=== PATIENT | female | born 1935 | race Caucasian/White ===

== ENCOUNTER 2016-03-24 18:23 | Inpatient (IN) | payer MEDICARE ==
[~2016-03-24] VITALS: Ht 152.4 cm; Wt 63.5 kg
[~2016-03-24 18:23] MED LIST: ACET325T9 PO; CEFP200T PO; CEPH-264 PO; CHOL10002 PO; CIPR250T30 PO; DIGO125T PO; FLUC150T PO; FLUO10CA7; FLUO20CA8 PO; FOLI1TAB16 PO; FURO40TA4 PO; Ipratropium/Albuterol Sulfate NEB; LEVO500T38 PO; MAGN400T22 PO; METO50TA2 PO; METR500T PO; Oxycodone Hcl/Acetaminophen PO; PANT40TA3 PO; PANT40TA5; POTA20TA12 PO; POTASSIUM; SILV20CR4 TP; TRAM50TA PO; [UNRECOGNIZED DRUG - OTHER]
[2016-03-24] MEDS ORDERED: methylPREDNISolone SOD SUCC PF 125 MG/2 ML VIAL. IV ONE (19:15)
[2016-03-24] MEDS ORDERED: IPRATRPIUM/ALBUTEROL 0.5/2.5MG 3 ML NEBU. NEB ONE (19:15)
[2016-03-24 19:18] LABS: BASO # 0.1 x10^3/uL (0.0-0.2); BASO % 0 % (0-3); EOS % 0 % (0-3); HEMATOCRIT 40.8 % (36.0-47.0); HEMOGLOBIN 13.2 g/dL (12.0-15.5); LYMPH # 2.1 x10^3/uL (1.0-4.8); LYMPH % 10 % (24-48); MEAN CORPUSCULAR HEMOGLOBIN 29 pg (25-35); MEAN CORPUSCULAR HGB CONC 33 g/dL (31-37); MEAN CORPUSCULAR VOLUME 89 fL (79-100); MONO % 9 % (0-9); NEUT % 80 % (31-73); PLATELET COUNT 258 x10^3/uL (140-400); RED BLOOD COUNT 4.61 x10^6/uL (3.50-5.40); RED CELL DISTRIBUTION WIDTH 15.2 % (11.5-14.5); WHITE BLOOD COUNT 20.8 x10^3/uL (4.0-11.0)
[2016-03-24] MEDS ORDERED: CEFTRIAXONE 1GM IVPB FOR OMNI 50 ML IV ONE (20:00)
[2016-03-24 20:08] LABS: ALBUMIN 2.8 g/dL (3.4-5.0); ALBUMIN/GLOBULIN RATIO 0.6 (1.0-1.7); CALCIUM 9.8 mg/dL (8.5-10.1); GFR 53.2; POTASSIUM 3.6 mmol/L (3.5-5.1); TOTAL BILIRUBIN 0.8 mg/dL (0.2-1.0); TOTAL PROTEIN 7.7 g/dL (6.4-8.2)
[2016-03-24 20:11] LABS: PLT ESTIMATE ADEQUATE (ADEQUATE); TOXIC GRANULATION MOD
[2016-03-24 20:38] LABS: OBC FLU VALID
[2016-03-24] MEDS: AZITHROMYCIN 500 MG in IV NORMAL SALINE 250ML 250 ML IV SCH (20:51)
[2016-03-24 23:00] VITALS: BP 132/70
[2016-03-24] MEDS ORDERED: CEFTRIAXONE SODIUM 1 GM in IV NORMAL SALINE 100ML 100 ML IV ONE (23:00)
--- NOTE | 2016-03-25 01:33 | ACF ---
Admission Forms Criteria PNEUMONIA, COMMUNITY ACQUIRED Clinical Indications for Admission to Inpatient Care ( Place 'X' for any and all applicable criteria): Admission is indicated for ANY ONE of the following (1)(2)(3): [ ]I. Hypoxemia indicated by ANY ONE of the following: [ ]a) Oxygen saturation less than 90% while breathing room air [ ]b) PO2 less than 60 mm Hg (8.0 kPa) while breathing room air [ ]c) Chronic lung disease with significant deterioration from baseline oxygenation [ ]II. Appropriate diagnostic testing and treatment unavailable in outpatient or recovery facility (eg,testing or infection control measures unavailable(10) [ X]III. Moderate-risk or high-risk category patients (Pneumonia Severity Index (PSI) class IV or V, or CURB-65 score of 3 or greater). [ ]IV. Outpatient treatment failure as indicated by ANY ONE of the following(9) : [ ]a) Failure to respond to antibiotic (eg, resistant organism) [ ]b) Clinically significant adverse effects from medication (eg, vomiting) [ ]c) Complications of pneumonia (eg, empyema, bacteremia) [ ]d) Significant worsening of comorbid cond necessitating inpatient care (eg, chronic heart failure) [ ]V. Intermediate-risk category patients (eg, PSI class III or CURB-65 score 2) who do not improve with initial therapy and observation. [ ]. Immunocompromised patients (eg, AIDS, chronic steroid use) at moderate or high risk based on clinical evaluation. [ ]VII. Complicated pleural effusions (eg, exudative, loculated) [ ]VIII.Hemodynamic instability [ ] IX. Altered mental status that is severe or persistent. [ ]X. Dehydration that is severe or persistent. [ ]XI. Bacteremia [ ]XII. Respiratory finding (eg. tachypnea) that do not respond to outpatient or observation care treatment Extended stay beyond goal length of stay may be needed for (20) [ ]a) Unclear diagnosis [ ]b) Pleural disease [ ]c) Severe pneumonia or treatment failure (25 [ ]d) Respiratory failure (anticipate invasive or noninvasive ventilatory support) [ ]e) Abnormal serum electrolytes (serum Na concentration less than 135 mEq/L (mmol/L) (32)(33) [ ]f) Clinically significant comorbid illness (eg, heart failure, atrial fibrillation with rapid heart rate, alcohol withdrawal, renal insufficiency)(34)(35) [ ]g) Comorbid acute exacerbation of COPD(36) [ ]h) Concomitant diagnosis of malignancy that may be associated with malnutrition, immunologic impairment, or bronchial obstruction. [ ]i) Concomitant altered mental status [ ]j) Culture-identified Gram-negative or antibiotic-resistant organism (eg, Pseudomonas, methicillin-resistant Staphylococcus aureus)(30) [ ]k) Healthcare-associated pneumonia The original [facility] content created by [employer] has been revised. The portions of the content which have been revised are identified through the use of italic text or in bold, and [facility] has neither reviewed nor approved the modified material. All other unmodified content is copyright [facility] [employer]. Please see references footnoted in the original [facility] edition 2016 Admission Criteria Met?: Yes TIFFANIE CASTELLANOS Mar 25, 2016 01:33
--- NOTE | 2016-03-25 02:01 | ED.ADGEN ---
Past Medical History Past Medical History: A-Fib, COPD, Diabetes-Type II, Heart Disease, Hypertension, UTI, Other Additional Past Medical Histor: pt states has heart problems but no ND Past Surgical History: Other Additional Past Surgical Histo: back, Poor Historian Alcohol Use: Occasionally Drug Use: None Adult General Chief Complaint Chief Complaint: SHORTNESS OF BREATH HPI HPI Patient is a 80 year old woman, history of COPD who uses 2.5-3 L of oxygen at baseline, hypertension, hyperlipidemia, "heart problems", who presents to the emergency department with a complaint of difficulty breathing that began today, with a cough, productive of sputum that is thick and white, and shortness of breath. Patient states that she may be experiencing fevers at home, but is uncertain, denies chills, denies any weakness, numbness or tingling, any injuries, any sick contacts or exposures, any GI or complaints. Her flu vaccination is up-to-date. Review of Systems Review of Systems Constitutional: Denies fever or chills. [] Eyes: Denies change in visual acuity. [] HENT: Denies nasal congestion or sore throat. [] Respiratory: Cough productive of sputum, shortness of breath. Cardiovascular: Denies chest pain or edema. [] GI: Denies abdominal pain, nausea, vomiting, bloody stools or diarrhea. [] : Denies dysuria. [] Musculoskeletal: Denies back pain or joint pain. [] Integument: Denies rash. [] Neurologic: Denies headache, focal weakness or sensory changes. [] Endocrine: Denies polyuria or polydipsia. [] Lymphatic: Denies swollen glands. [] Psychiatric: Denies depression or anxiety. [] Current Medications Current Medications Current Medications Medications (Trade) Dose Ordered Sig/Darline Start Time Stop Time Status Last Admin Dose Admin Albuterol/ Ipratropium (Duoneb) 3 ml 1X ONCE 03/24/16 19:15 03/24/16 19:16 DC Methylprednisolone Sodium Succinate (Solu-Medrol 125mg Vial) 125 mg 1X ONCE 03/24/16 19:15 03/24/16 19:16 DC 03/24/16 19:42 125 MG Allergies Allergies Allergies Coded Allergies Type Severity Reaction Last Updated Verified celecoxib Allergy Intermediate 09/19/14 Yes duloxetine Allergy Intermediate 09/19/14 Yes rofecoxib Allergy Intermediate 09/19/14 Yes Physical Exam Physical Exam Constitutional: Well developed, well nourished, no acute distress, non-toxic appearance. Nasal cannula in place. [] HENT: Normocephalic, atraumatic, bilateral external ears normal, oropharynx moist, no oral exudates, nose normal. [] Eyes: PERRLA, EOMI, conjunctiva normal, no discharge. [] Neck: Normal range of motion, no tenderness, supple, no stridor. [] Cardiovascular:Heart rate regular rhythm, no murmur , S1, S2, rubs or gallops. [ ] Lungs & Thorax: Patient with coarse breath sounds at bases bilaterally, diminished, with mild crackles and rhonchi noted at the right lung base. No chest wall crepitus or tenderness. Abdomen: Bowel sounds normal, soft, no tenderness, no rebound, rigidity, no guarding, no masses, no pulsatile masses. [] Skin: Warm, dry, no erythema, no rash. [] Back: No tenderness, no CVA tenderness. [] Extremities: No tenderness, no cyanosis, no clubbing, ROM intact, no edema. Negative Homans sign. [] Neurologic: Alert and oriented X 3, normal motor function, normal sensory function, no focal deficits noted. [] Psychologic: Affect normal, judgement normal, mood normal. [] Current Patient Data Vital Signs Vital Signs Date Time Temp Pulse Resp B/P Pulse Ox O2 Delivery O2 Flow Rate FiO2 03/24/16 19:30 102 25 125/79 93 03/24/16 19:00 Nasal Cannula 3 03/24/16 18:25 98.3 98.3 Lab Values Laboratory Tests Test 03/24/16 18:35 03/24/16 19:50 White Blood Count 20.8x10^3/uL (4.0-11.0) H Red Blood Count 4.61x10^6/uL (3.50-5.40) Hemoglobin 13.2g/dL (12.0-15.5) Hematocrit 40.8% (36.0-47.0) Mean Corpuscular Volume 89fL (79-100) Mean Corpuscular Hemoglobin 29pg (25-35) Mean Corpuscular Hemoglobin Concent 33g/dL (31-37) Red Cell Distribution Width 15.2% (11.5-14.5) H Platelet Count 258x10^3/uL (140-400) Neutrophils (%) (Auto) 80% (31-73) H Lymphocytes (%) (Auto) 10% (24-48) L Monocytes (%) (Auto) 9% (0-9) Eosinophils (%) (Auto) 0% (0-3) Basophils (%) (Auto) 0% (0-3) Neutrophils # (Auto) 16.6x10^3uL (1.8-7.7) H Lymphocytes # (Auto) 2.1x10^3/uL (1.0-4.8) Monocytes # (Auto) 1.8x10^3/uL (0.0-1.1) H Eosinophils # (Auto) 0.1x10^3/uL (0.0-0.7) Basophils # (Auto) 0.1x10^3/uL (0.0-0.2) Segmented Neutrophils % 72% (35-66) H Band Neutrophils % 13% (0-9) H Lymphocytes % 6% (24-48) L Monocytes % 9% (0-10) Toxic Granulation Mod Platelet Estimate Adequate (ADEQUATE) Sodium Level 140mmol/L (136-145) Potassium Level 3.6mmol/L (3.5-5.1) Chloride Level 98mmol/L (98-107) Carbon Dioxide Level 27mmol/L (21-32) Anion Gap 15 (6-14) H Blood Urea Nitrogen 22mg/dL (7-20) H Creatinine 1.0mg/dL (0.6-1.0) Estimated GFR (Cockcroft-Gault) 53.2 BUN/Creatinine Ratio 22 (6-20) H Glucose Level 134mg/dL (70-99) H Calcium Level 9.8mg/dL (8.5-10.1) Total Bilirubin 0.8mg/dL (0.2-1.0) Aspartate Amino Transferase (AST) 23U/L (15-37) Alanine Aminotransferase (ALT) 11U/L (14-59) L Alkaline Phosphatase 107U/L (46-116) Troponin I Quantitative < 0.017ng/mL (0.000-0.055) HE-Gjs-M-Type Natriuretic Peptide 2048pg/mL (0-449) H Total Protein 7.7g/dL (6.4-8.2) Albumin 2.8g/dL (3.4-5.0) L Albumin/Globulin Ratio 0.6 (1.0-1.7) L Influenza Type A Antigen Negative (NEGATIVE) Influenza Type B Antigen Negative (NEGATIVE) Laboratory Tests 03/24/16 18:35 Laboratory Tests 03/24/16 18:35 EKG EKG EC to: Regular rhythm, heart rate 96 beats minute, QTC of 451, QRS of 88, occasional PVCs noted, with T-wave inversions noted in the lateral leads, left axis deviation, and right ventricle hypertrophy, abnormal ECG, does not meet STEMI criteria. [] Radiology/Procedures Radiology/Procedures Chest x-ray: One view: Patient with hyperinflation, right lower lobe infiltrate identified, normal cardiac silhouette, no effusions, no pneumothorax. No bony abnormalities. As interpreted by me. Course & Med Decision Making Course & Med Decision Making Pertinent Labs and Imaging studies reviewed. (See chart for details) Patient's examination, history, and imaging are consistent with a community- acquired pneumonia. Patient stable on 3 L nasal cannula in the ED, initiated IV antibiotics, steroids, nebs in the ED. Findings as above discussed with Dr. Sheriff, patient accepted to his service as a full admission to the medical telemetry floor, with continued IV antibiotics, supportive measures as stated bridge orders per his request. Dragon Disclaimer Dragon Disclaimer This electronic medical record was generated, in whole or in part, using a voice recognition dictation system. Departure Impression: Primary Impression: Community acquired pneumonia Additional Impression: COPD (chronic obstructive pulmonary disease) Disposition: 09 ADMITTED INPATIENT Admitting Physician: Myranda Sheriff Condition: IMPROVED Problem Qualifiers Additional Impression: COPD (chronic obstructive pulmonary disease) COPD type: chronic bronchitis Chronic bronchitis type: unspecified Qualified Code: J42 - Unspecified chronic bronchitis PERNELL GUILLEN DO Mar 25, 2016 02:02
[2016-03-25] MEDS ORDERED: DEXTROSE 50% 25 GM / 50ML DISP.SYRIN. IV PRN (02:15)
[2016-03-25 03:00] VITALS: BP 121/85
--- NOTE | 2016-03-25 06:21 | EKG ---
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
[2016-03-25 07:00] VITALS: BP 145/93
--- NOTE | 2016-03-25 08:16 | RAD ---
Portable AP upright view CXR: Clinical indications: Shortness of breath and cough today. Comparison: November 29, 2015. Findings: Right lung base infiltrate is seen. There is focal eventration of the medial left hemidiaphragm which is unchanged. No pleural effusion or pneumothorax is seen. Heart size is enlarged but stable. Mediastinum is stable. Narrowing of the acromiohumeral space of the left shoulder is seen consistent with a chronic rotator cuff tear. IMPRESSION: Right lung base infiltrate.
[2016-03-25] MEDS: INSULIN ASPART 300 UNITS/3 ML INSULN.PEN SQ SCH ×3 (08:43→16:30)
[2016-03-25] MEDS ORDERED: TRAMADOL 50 MG TABLET. PO PRN (09:00)
[2016-03-25] MEDS ORDERED: ACETAMINOPHEN 325 MG TABLET. PO PRN (09:00)
--- NOTE | 2016-03-25 10:28 | PDOC ---
Provider Note Provider Note Patient seen. History and Physical dictated. See dictation# [id number] SUSAN JACKSON MD Mar 25, 2016 10:27
[2016-03-25] MEDS ORDERED: POTASSIUM CHLORIDE 20 MEQ TABLET.ER. PO ONE (10:30)
[2016-03-25 11:14] VITALS: BP 129/66
[2016-03-25] MEDS: IPRATRPIUM/ALBUTEROL 0.5/2.5MG 3 ML NEBU. NEB SCH ×2 (11:33→16:36)
--- NOTE | 2016-03-25 11:48 | PDOC ---
Provider Note Provider Note dictated KODAK ARIAS MD Mar 25, 2016 11:48
--- NOTE | 2016-03-25 12:03 | CONS ---
DATE OF CONSULTATION: 03/25/2016 ATTENDING PHYSICIAN: Dr. Myranda Sheriff REASON FOR CONSULTATION: Pneumonia and dyspnea. HISTORY OF PRESENT ILLNESS: The patient is an 80-year-old female who has 60 years of tobacco use. She uses 2.5-3 liters of oxygen on a 24-hour basis. She was brought into the hospital complaining of cough and shortness of breath. She states the family members were ill at home as well. She has some wheezing on admission. No leg edema. No chest pain, no nausea, vomiting or diarrhea. The patient's chest x-ray was reviewed by me and it shows right lower lobe infiltrate consistent with pneumonia. Her oxygen requirement has not changed. PAST MEDICAL HISTORY: History of AFib, history of COPD, type 2 diabetes, heart disease, hypertension, UTI, and chronic respiratory failure. PAST SURGICAL HISTORY: Back surgery. ALLERGIES: , DULOXETINE AND . MEDICATIONS: Reviewed as listed in the MRAD including antibiotic, Rocephin and azithromycin. She is currently on bronchodilators as well. REVIEW OF SYSTEMS: Twelve-point system obtained. Pertinent positives discussed in my history of present illness, otherwise noncontributory. All systems that were negative were reviewed as well. SOCIAL HISTORY: Smoked for 60 years. FAMILY HISTORY: Noncontributory lungs. PHYSICAL EXAMINATION: VITAL SIGNS: Blood pressure stable, afebrile, pulse ox 94% on 4 liters. HEENT: Sclerae nonicteric. NECK: Supple. LUNGS: With crackles, right lower lobe. CARDIOVASCULAR: Regular rate. ABDOMEN: Soft, nontender. EXTREMITIES: With no pitting edema. LABORATORY DATA: Reviewed. White cell count 20.8, hemoglobin 13.2. Influenza is negative. BUN 22, creatinine 1.0. IMPRESSION: 1. Dyspnea secondary to acute exacerbation of chronic obstructive pulmonary disease and right lower lobe pneumonia. 2. Abnormal chest x-ray with right lower lobe infiltrate and crackles on examination. This is consistent with community-acquired pneumonia. 3. Clinically, unlikely congestive heart failure. 4. Leukocytosis secondary to pneumonia. 5. Underlying severe chronic obstructive pulmonary disease with chronic respiratory failure on 2-1/2 to 3 liters of oxygen. RECOMMENDATION: 1. Continue present antibiotics. 2. Continue present bronchodilators. 3. Repeat chest x-ray in 48-72 hours. 4. Continue oxygen to keep saturation 92-94%. 5. We will follow along with you. KODAK ARIAS MD DR: KSENIA/allyn JOB#: [id number] / [id number]
[2016-03-25] MEDS: CHOLECALCIFEROL (VITAMIN D3) 1,000 UNIT TABLET PO SCH (12:32)
[2016-03-25] MEDS: DIGOXIN 125 MCG TABLET PO SCH (12:32)
[2016-03-25] MEDS: FLUOXETINE HCL 20 MG CAPSULE PO SCH (12:32)
[2016-03-25] MEDS: MAGNESIUM OXIDE 400 MG TABLET PO SCH ×4 (12:32→21:10)
[2016-03-25] MEDS: PANTOPRAZOLE 40 MG TABLET. PO SCH (12:32)
[2016-03-25] MEDS: FOLIC ACID 1 MG TABLET PO SCH (12:33)
[2016-03-25] MEDS: METOPROLOL TART IMMED RELEASE 50 MG TABLET PO SCH ×2 (12:33→21:10)
[2016-03-25 15:15] VITALS: BP 146/80
[2016-03-25] MEDS ORDERED: POTA10CA PO (16:28)
[2016-03-25] MEDS ORDERED: FURO40TA4 PO (16:28)
[2016-03-25 19:00] VITALS: BP 132/69
[2016-03-25] MEDS: AZITHROMYCIN 500 MG in IV NORMAL SALINE 250ML 250 ML IV SCH (21:10)
[2016-03-25] MEDS: CEFTRIAXONE SODIUM 1 GM in IV NORMAL SALINE 100ML 100 ML IV SCH (22:30)
[2016-03-25 23:00] VITALS: BP 143/90
[2016-03-26] MEDS: GUAIFENESIN DM 200MG/20MG 10 ML SYRUP. PO PRN ×3 (01:54→20:53)
--- NOTE | 2016-03-26 02:26 | HP ---
ADMIT DATE: 03/24/2016 ADMITTING PHYSICIAN: Dr. Susan Jackson. REASON FOR ADMISSION: Dyspnea and cough. HISTORY OF PRESENT ILLNESS: This 80-year-old female who lives at home, recently her with her who had cold, cough, congestion and was admitted to the hospital. This happened a few days ago. The patient now states that last 2-3 days, she has had increased cough, congestion and dyspnea. She denies any fever or chills. She is a poor historian. She stated that she has been weak and sick for several months. She does not come to the office frequently and has not been getting out of bed. She also has a history of alcoholism, although I am not sure if she has been drinking currently. She is not a good historian and admits to cough and congestion. She denies any nausea or vomiting. Her appetite has been poor and she has been feeling weak. SYSTEMS REVIEW: Other systems reviewed and are negative. She denies any chest pains or palpitations or abdominal pain, nausea or vomiting. In the Emergency Room, the patient was noted to have right lower lobe infiltrate and the patient has been admitted for pneumonia and exacerbation of COPD. PAST MEDICAL HISTORY: The patient was last admitted here in 11/2015 for urinary tract infection and weakness. She is known to have history of atrial fibrillation, chronic, not an anticoagulation candidate, history of alcoholism, hypomagnesemia, systolic congestive heart failure with ejection fraction of 40%, hypertension, hyperlipidemia, chronic obstructive pulmonary disease with exacerbation, chronic respiratory failure with chronic oxygen use at 2 liters by nasal cannula, gastroesophageal reflux disease, low back pain, chronic degenerative disk disease, lumbar spinal stenosis and mild scoliosis, gout, chronic renal insufficiency, diabetes mellitus, peripheral vascular disease, physical deconditioning, noncompliance. She also has history of bladder diverticulum. PAST SURGICAL HISTORY: The patient has had back surgery, appendectomy and history of falls. FAMILY HISTORY: Positive for hypertension. SOCIAL HISTORY: The patient has a history of alcoholism, chronic smoking and also history of dependence on narcotic medications. MEDICATIONS: Reviewed. ALLERGIES: The patient is ALLERGIC TO CELEBREX, DULOXETINE AND VIOXX. PHYSICAL EXAMINATION: GENERAL: The patient is an elderly female who is chronically ill and also appears to be now acutely ill and in mild respiratory distress. VITAL SIGNS: Temperature 97.2, pulse 84 per minute, respirations 18 per minute, blood pressure 145/93 mmHg. GENERAL: The patient is alert, oriented, but forgetful and in mild to moderate respiratory distress. EYES: Pupils reacting to light. Conjunctivae pale. Sclerae muddy. THROAT: Congested. SKIN: Warm and dry. Skin is pale. NECK: JVP normal. No thyromegaly. Trachea midline. LUNGS: Decreased breath sounds at bases with occasional rhonchi and wheezes. The patient has decreased breath sounds in both lungs. CARDIOVASCULAR: S1, S2 irregular. ABDOMEN: Soft, nontender. No guarding, no rigidity. Bowel sounds present. EXTREMITIES: No edema. CENTRAL NERVOUS SYSTEM: Generalized weakness. LABORATORY FINDINGS: Chest x-ray shows a right lower lobe infiltrate. Sodium is 140, potassium 3.6, BUN 22, creatinine 1.0. Glucose 134 and 183. BNP is 2048. Troponin less than 0.017. Albumin 2.8, total protein 7.7. Influenza A and B serologies negative. WBC count is 20.8, hemoglobin 13.2, platelet count is 258,000. Polys 72, bands 13. IMPRESSION: 1. Pneumonia. 2. Exacerbation of chronic obstructive pulmonary disease. 3. Atrial fibrillation, chronic, not an anticoagulation candidate. 4. Chronic systolic congestive heart failure with ejection fraction of 40%. 5. Hypertension. 6. Hyperlipidemia. 7. Chronic respiratory failure, hypoxic with oxygen use at 2 liters by nasal cannula. 8. Gastroesophageal reflux disease. 9. Low back pain. 10. Chronic degenerative disk disease and lumbar spinal stenosis and mild scoliosis. 11. Gout. 12. Chronic renal insufficiency. 13. Diabetes mellitus. 14. Peripheral vascular disease. 15. Physical deconditioning. PLAN: I will start her on IV Rocephin, IV Zithromax and we are going to treat her for community-acquired pneumonia. Consult Dr. Styles for pulmonary evaluation and management. I will start her on breathing treatment. Monitor her for seizures and withdrawal because the patient has history of alcoholism. I discussed the condition and treatment with her . Monitor blood sugars, low-dose insulin sliding scale. Replace potassium. For details, please refer to the orders. I will also obtain urinalysis and culture if needed. SUSAN JACKSON MD DR: BETSY/nts JOB#: [id number] / [id number]
[2016-03-26 03:00] VITALS: BP 91/73
[2016-03-26] MEDS: MAGNESIUM OXIDE 400 MG TABLET PO SCH ×4 (05:48→20:52)
[2016-03-26 06:32] LABS: ALBUMIN 2.7 g/dL (3.4-5.0); ALBUMIN/GLOBULIN RATIO 0.6 (1.0-1.7); CALCIUM 9.6 mg/dL (8.5-10.1); CREATININE 1.2 mg/dL (0.6-1.0); GFR 43.1; MAGNESIUM 1.6 mg/dL (1.8-2.4); POTASSIUM 3.1 mmol/L (3.5-5.1); TOTAL BILIRUBIN 0.4 mg/dL (0.2-1.0); TOTAL PROTEIN 6.9 g/dL (6.4-8.2)
[2016-03-26] MEDS: IPRATRPIUM/ALBUTEROL 0.5/2.5MG 3 ML NEBU. NEB SCH ×4 (06:59→19:27)
[2016-03-26 07:00] VITALS: BP 142/67
[2016-03-26] MEDS: INSULIN ASPART 300 UNITS/3 ML INSULN.PEN SQ SCH ×2 (07:30→16:30)
--- NOTE | 2016-03-26 08:27 | PDOC ---
PULMONARY PROGRESS NOTES Subjective has sob, cough, not able to cough sputum, has nasal congestion Vitals Vital Signs Date Time Temp Pulse Resp B/P Pulse Ox O2 Delivery O2 Flow Rate FiO2 03/26/16 07:00 93 Room Air 03/26/16 03:00 97.9 94 20 91/73 4.0 97.9 Comments ros as mentioned as above other sys otherwise neg General: Alert Lungs: Wheezing, Crackles Cardiovascular: S1, S2 Abdomen: Soft, Non-tender Neuro Exam: Alert, Oriented Extremities: No Edema Skin: Warm Labs Laboratory Tests Test 03/24/16 18:35 03/24/16 19:50 03/25/16 08:38 03/25/16 11:35 White Blood Count 20.8x10^3/uL (4.0-11.0) Red Blood Count 4.61x10^6/uL (3.50-5.40) Hemoglobin 13.2g/dL (12.0-15.5) Hematocrit 40.8% (36.0-47.0) Mean Corpuscular Volume 89fL (79-100) Mean Corpuscular Hemoglobin 29pg (25-35) Mean Corpuscular Hemoglobin Concent 33g/dL (31-37) Red Cell Distribution Width 15.2% (11.5-14.5) Platelet Count 258x10^3/uL (140-400) Neutrophils (%) (Auto) 80% (31-73) Lymphocytes (%) (Auto) 10% (24-48) Monocytes (%) (Auto) 9% (0-9) Eosinophils (%) (Auto) 0% (0-3) Basophils (%) (Auto) 0% (0-3) Neutrophils # (Auto) 16.6x10^3uL (1.8-7.7) Lymphocytes # (Auto) 2.1x10^3/uL (1.0-4.8) Monocytes # (Auto) 1.8x10^3/uL (0.0-1.1) Eosinophils # (Auto) 0.1x10^3/uL (0.0-0.7) Basophils # (Auto) 0.1x10^3/uL (0.0-0.2) Segmented Neutrophils % 72% (35-66) Band Neutrophils % 13% (0-9) Lymphocytes % 6% (24-48) Monocytes % 9% (0-10) Toxic Granulation Mod Platelet Estimate Adequate (ADEQUATE) Sodium Level 140mmol/L (136-145) Potassium Level 3.6mmol/L (3.5-5.1) Chloride Level 98mmol/L (98-107) Carbon Dioxide Level 27mmol/L (21-32) Anion Gap 15 (6-14) Blood Urea Nitrogen 22mg/dL (7-20) Creatinine 1.0mg/dL (0.6-1.0) Estimated GFR (Cockcroft-Gault) 53.2 BUN/Creatinine Ratio 22 (6-20) Glucose Level 134mg/dL (70-99) Calcium Level 9.8mg/dL (8.5-10.1) Total Bilirubin 0.8mg/dL (0.2-1.0) Aspartate Amino Transf (AST/SGOT) 23U/L (15-37) Alanine Aminotransferase (ALT/SGPT) 11U/L (14-59) Alkaline Phosphatase 107U/L (46-116) Troponin I Quantitative < 0.017ng/mL (0.000-0.055) XI-[id number]-I-Type Natriuretic Peptide 2048pg/mL (0-449) Total Protein 7.7g/dL (6.4-8.2) Albumin 2.8g/dL (3.4-5.0) Albumin/Globulin Ratio 0.6 (1.0-1.7) Influenza Type A Antigen Negative (NEGATIVE) Influenza Type B Antigen Negative (NEGATIVE) Glucose (Fingerstick) 183mg/dL (70-99) 144mg/dL (70-99) Test 03/25/16 16:44 03/25/16 21:00 03/26/16 05:00 03/26/16 07:52 Glucose (Fingerstick) 136mg/dL (70-99) 165mg/dL (70-99) 104mg/dL (70-99) Sodium Level 142mmol/L (136-145) Potassium Level 3.1mmol/L (3.5-5.1) Chloride Level 100mmol/L (98-107) Carbon Dioxide Level 32mmol/L (21-32) Anion Gap 10 (6-14) Blood Urea Nitrogen 40mg/dL (7-20) Creatinine 1.2mg/dL (0.6-1.0) Estimated GFR (Cockcroft-Gault) 43.1 BUN/Creatinine Ratio 33 (6-20) Glucose Level 95mg/dL (70-99) Calcium Level 9.6mg/dL (8.5-10.1) Magnesium Level 1.6mg/dL (1.8-2.4) Total Bilirubin 0.4mg/dL (0.2-1.0) Aspartate Amino Transf (AST/SGOT) 16U/L (15-37) Alanine Aminotransferase (ALT/SGPT) 11U/L (14-59) Alkaline Phosphatase 82U/L (46-116) Total Protein 6.9g/dL (6.4-8.2) Albumin 2.7g/dL (3.4-5.0) Albumin/Globulin Ratio 0.6 (1.0-1.7) Laboratory Tests Test 03/25/16 08:38 03/25/16 11:35 03/25/16 16:44 03/25/16 21:00 Glucose (Fingerstick) 183mg/dL (70-99) 144mg/dL (70-99) 136mg/dL (70-99) 165mg/dL (70-99) Test 03/26/16 05:00 03/26/16 07:52 Sodium Level 142mmol/L (136-145) Potassium Level 3.1mmol/L (3.5-5.1) Chloride Level 100mmol/L (98-107) Carbon Dioxide Level 32mmol/L (21-32) Anion Gap 10 (6-14) Blood Urea Nitrogen 40mg/dL (7-20) Creatinine 1.2mg/dL (0.6-1.0) Estimated GFR (Cockcroft-Gault) 43.1 BUN/Creatinine Ratio 33 (6-20) Glucose Level 95mg/dL (70-99) Calcium Level 9.6mg/dL (8.5-10.1) Magnesium Level 1.6mg/dL (1.8-2.4) Total Bilirubin 0.4mg/dL (0.2-1.0) Aspartate Amino Transf (AST/SGOT) 16U/L (15-37) Alanine Aminotransferase (ALT/SGPT) 11U/L (14-59) Alkaline Phosphatase 82U/L (46-116) Total Protein 6.9g/dL (6.4-8.2) Albumin 2.7g/dL (3.4-5.0) Albumin/Globulin Ratio 0.6 (1.0-1.7) Glucose (Fingerstick) 104mg/dL (70-99) Medications Active Scripts Medications Dose Route/Sig Days Date Category Potassium Chloride 10 Meq Capsule.er 10 Meq PO DAILY 03/25/16 Reported Furosemide 40 Mg Tablet 1 Tab PO DAILY 03/25/16 Reported Cefpodoxime Proxetil 200 Mg Tablet 1 Tab PO BID 12/02/15 Rx Vitamin D (Cholecalciferol (Vitamin D3)) 1,000 Unit Tablet 1,000 Unit PO DAILY 09/28/15 Rx Fluoxetine Hcl 20 Mg Capsule 20 Mg PO DAILY 09/28/15 Rx Protonix (Pantoprazole Sodium) 40 Mg Tablet 40 Mg PO DAILYAC 12/09/14 Rx [Ipratropium/Albuterol Sulfate] 3 ML Nebu 3 Ml NEB RTQID 12/09/14 Rx Tylenol (Acetaminophen) 325 Mg Tablet 650 Mg PO PRN Q6HRS PRN 12/09/14 Rx Tramadol Hcl 50 Mg Tablet 1 Tab PO PRN Q6HRS 09/19/14 Reported Metoprolol Tartrate 50 Mg Tablet 1 Tab PO BID 09/19/14 Reported Mag-Oxide (Magnesium Oxide) 400 Mg Tablet 400 Mg PO [id number] 09/19/14 Reported Folic Acid 1 Mg Tablet 1 Tab PO DAILY 09/19/14 Reported Digoxin 125 Mcg Tablet 125 Mcg PO DAILY 09/19/14 Reported Comments cxr reviewed, rll infilt Impression . IMPRESSION: 1. Dyspnea secondary to acute exacerbation of chronic obstructive pulmonary disease and right lower lobe pneumonia. 2. Abnormal chest x-ray with right lower lobe infiltrate and crackles on examination. This is consistent with community-acquired pneumonia. 3. Clinically, unlikely congestive heart failure. 4. Leukocytosis secondary to pneumonia. 5. Underlying severe chronic obstructive pulmonary disease with chronic respiratory failure on 2-1/2 to 3 liters of oxygen. 6. wheezing. Plan . RECOMMENDATION: 1. Continue present antibiotics. 2. Continue bronchodilators. 3. Repeat chest x-ray in 48-72 hours. 4. Continue oxygen to keep saturation 92-94%. 5. add singulair 6. add ics discussed w rn, pt JULITO ARAUJO MD Mar 26, 2016 08:27
[2016-03-26] MEDS: METOPROLOL TART IMMED RELEASE 50 MG TABLET PO SCH ×2 (08:39→20:53)
[2016-03-26] MEDS: FLUOXETINE HCL 20 MG CAPSULE PO SCH (08:39)
[2016-03-26] MEDS: CHOLECALCIFEROL (VITAMIN D3) 1,000 UNIT TABLET PO SCH (08:39)
[2016-03-26] MEDS: PANTOPRAZOLE 40 MG TABLET. PO SCH (08:39)
[2016-03-26] MEDS: FOLIC ACID 1 MG TABLET PO SCH (08:39)
[2016-03-26] MEDS: DIGOXIN 125 MCG TABLET PO SCH (08:41)
[2016-03-26] MEDS: BUDESONIDE 0.5 MG/2 ML NEBU NEB SCH ×2 (09:00→19:27)
[2016-03-26] MEDS ORDERED: MAGNESIUM SULFATE 4GM 100 ML IV ONE (10:00)
[2016-03-26 10:13] LABS: BACTERIA,URINE 0 /HPF (0-FEW); BILIRUBIN,URINE NEGATIVE (NEG); GLUCOSE,URINE NEGATIVE (NEG); NITRITE,URINE NEGATIVE (NEG); PH,URINE 6.5; PROTEIN,URINE NEGATIVE (NEG-TRACE); RBC,URINE 0 /HPF (0-2); SQUAMOUS EPITHELIAL CELL,UR FEW /LPF; WBC,URINE 0 /HPF (0-4)
[2016-03-26] MEDS: POTASSIUM CHLORIDE 20 MEQ TABLET.ER. PO SCH ×2 (10:17→16:50)
[2016-03-26 11:00] VITALS: BP 140/92
--- NOTE | 2016-03-26 12:57 | PDOC ---
IM PROGRESS NOTES- Subjective Subjective Has cough,congestion Objective Vitals Vital Signs Date Time Temp Pulse Resp B/P Pulse Ox O2 Delivery O2 Flow Rate FiO2 03/26/16 12:40 Nasal Cannula 2.0 03/26/16 11:00 98.2 84 20 140/92 95 98.2 Input & Output Intake and Output 03/26/16 07:00 Intake Total 4160 ml Balance 4160 ml Intake Oral 3810 ml IV Total 350 ml # Voids 9 Physical Exam Physical Exam General appearance - alert,ill appearing, and in no distress and oriented to person, place, and time Mental Status - alert, oriented to person, place, and time, affect appropriate to mood Head - normal Chest - few bilateral wheezes Heart - S1 and S2 normal Abdomen - soft, nontender, nondistended, no masses or organomegaly Neurological - alert and oriented Musculoskeletal - no muscular tenderness noted Extremities - no pedal edema Skin - warm and dry Labs Laboratory Tests Test 03/24/16 18:35 03/24/16 19:50 03/25/16 08:38 03/25/16 11:35 White Blood Count 20.8x10^3/uL (4.0-11.0) Red Blood Count 4.61x10^6/uL (3.50-5.40) Hemoglobin 13.2g/dL (12.0-15.5) Hematocrit 40.8% (36.0-47.0) Mean Corpuscular Volume 89fL (79-100) Mean Corpuscular Hemoglobin 29pg (25-35) Mean Corpuscular Hemoglobin Concent 33g/dL (31-37) Red Cell Distribution Width 15.2% (11.5-14.5) Platelet Count 258x10^3/uL (140-400) Neutrophils (%) (Auto) 80% (31-73) Lymphocytes (%) (Auto) 10% (24-48) Monocytes (%) (Auto) 9% (0-9) Eosinophils (%) (Auto) 0% (0-3) Basophils (%) (Auto) 0% (0-3) Neutrophils # (Auto) 16.6x10^3uL (1.8-7.7) Lymphocytes # (Auto) 2.1x10^3/uL (1.0-4.8) Monocytes # (Auto) 1.8x10^3/uL (0.0-1.1) Eosinophils # (Auto) 0.1x10^3/uL (0.0-0.7) Basophils # (Auto) 0.1x10^3/uL (0.0-0.2) Segmented Neutrophils % 72% (35-66) Band Neutrophils % 13% (0-9) Lymphocytes % 6% (24-48) Monocytes % 9% (0-10) Toxic Granulation Mod Platelet Estimate Adequate (ADEQUATE) Sodium Level 140mmol/L (136-145) Potassium Level 3.6mmol/L (3.5-5.1) Chloride Level 98mmol/L (98-107) Carbon Dioxide Level 27mmol/L (21-32) Anion Gap 15 (6-14) Blood Urea Nitrogen 22mg/dL (7-20) Creatinine 1.0mg/dL (0.6-1.0) Estimated GFR (Cockcroft-Gault) 53.2 BUN/Creatinine Ratio 22 (6-20) Glucose Level 134mg/dL (70-99) Calcium Level 9.8mg/dL (8.5-10.1) Total Bilirubin 0.8mg/dL (0.2-1.0) Aspartate Amino Transf (AST/SGOT) 23U/L (15-37) Alanine Aminotransferase (ALT/SGPT) 11U/L (14-59) Alkaline Phosphatase 107U/L (46-116) Troponin I Quantitative < 0.017ng/mL (0.000-0.055) [id number]-Type Natriuretic Peptide 2048pg/mL (0-449) Total Protein 7.7g/dL (6.4-8.2) Albumin 2.8g/dL (3.4-5.0) Albumin/Globulin Ratio 0.6 (1.0-1.7) Influenza Type A Antigen Negative (NEGATIVE) Influenza Type B Antigen Negative (NEGATIVE) Glucose (Fingerstick) 183mg/dL (70-99) 144mg/dL (70-99) Test 03/25/16 16:44 03/25/16 21:00 03/26/16 05:00 03/26/16 07:52 Glucose (Fingerstick) 136mg/dL (70-99) 165mg/dL (70-99) 104mg/dL (70-99) Sodium Level 142mmol/L (136-145) Potassium Level 3.1mmol/L (3.5-5.1) Chloride Level 100mmol/L (98-107) Carbon Dioxide Level 32mmol/L (21-32) Anion Gap 10 (6-14) Blood Urea Nitrogen 40mg/dL (7-20) Creatinine 1.2mg/dL (0.6-1.0) Estimated GFR (Cockcroft-Gault) 43.1 BUN/Creatinine Ratio 33 (6-20) Glucose Level 95mg/dL (70-99) Calcium Level 9.6mg/dL (8.5-10.1) Magnesium Level 1.6mg/dL (1.8-2.4) Total Bilirubin 0.4mg/dL (0.2-1.0) Aspartate Amino Transf (AST/SGOT) 16U/L (15-37) Alanine Aminotransferase (ALT/SGPT) 11U/L (14-59) Alkaline Phosphatase 82U/L (46-116) Total Protein 6.9g/dL (6.4-8.2) Albumin 2.7g/dL (3.4-5.0) Albumin/Globulin Ratio 0.6 (1.0-1.7) Test 03/26/16 08:30 03/26/16 11:38 Urine Collection Type Unknown Urine Color Yellow Urine Clarity Clear Urine pH 6.5 Urine Specific [place] 1.020 Urine Protein Negativemg/dL (NEG-TRACE) Urine Glucose (UA) Negativemg/dL (NEG) Urine Ketones (Stick) Negativemg/dL (NEG) Urine Blood Negative (NEG) Urine Nitrite Negative (NEG) Urine Bilirubin Negative (NEG) Urine Urobilinogen Dipstick 1.0mg/dL (0.2 mg/dL) Urine Leukocyte Esterase Negative (NEG) Urine RBC 0/HPF (0-2) Urine WBC 0/HPF (0-4) Urine Squamous Epithelial Cells Few/LPF Urine Bacteria 0/HPF (0-FEW) Glucose (Fingerstick) 143mg/dL (70-99) Laboratory Tests Test 03/25/16 16:44 03/25/16 21:00 03/26/16 05:00 03/26/16 07:52 Glucose (Fingerstick) 136mg/dL (70-99) 165mg/dL (70-99) 104mg/dL (70-99) Sodium Level 142mmol/L (136-145) Potassium Level 3.1mmol/L (3.5-5.1) Chloride Level 100mmol/L (98-107) Carbon Dioxide Level 32mmol/L (21-32) Anion Gap 10 (6-14) Blood Urea Nitrogen 40mg/dL (7-20) Creatinine 1.2mg/dL (0.6-1.0) Estimated GFR (Cockcroft-Gault) 43.1 BUN/Creatinine Ratio 33 (6-20) Glucose Level 95mg/dL (70-99) Calcium Level 9.6mg/dL (8.5-10.1) Magnesium Level 1.6mg/dL (1.8-2.4) Total Bilirubin 0.4mg/dL (0.2-1.0) Aspartate Amino Transf (AST/SGOT) 16U/L (15-37) Alanine Aminotransferase (ALT/SGPT) 11U/L (14-59) Alkaline Phosphatase 82U/L (46-116) Total Protein 6.9g/dL (6.4-8.2) Albumin 2.7g/dL (3.4-5.0) Albumin/Globulin Ratio 0.6 (1.0-1.7) Test 03/26/16 08:30 03/26/16 11:38 Urine Collection Type Unknown Urine Color Yellow Urine Clarity Clear Urine pH 6.5 Urine Specific [place] 1.020 Urine Protein Negativemg/dL (NEG-TRACE) Urine Glucose (UA) Negativemg/dL (NEG) Urine Ketones (Stick) Negativemg/dL (NEG) Urine Blood Negative (NEG) Urine Nitrite Negative (NEG) Urine Bilirubin Negative (NEG) Urine Urobilinogen Dipstick 1.0mg/dL (0.2 mg/dL) Urine Leukocyte Esterase Negative (NEG) Urine RBC 0/HPF (0-2) Urine WBC 0/HPF (0-4) Urine Squamous Epithelial Cells Few/LPF Urine Bacteria 0/HPF (0-FEW) Glucose (Fingerstick) 143mg/dL (70-99) Meds Current Medications Budesonide (Pulmicort) 0.5 mg RTBID NEB ; Start 03/26/16 at 09:00 Ceftriaxone Sodium/Sodium Chloride (Rocephin/Iv Sodium Chloride 0.9% 100ml) 100 ml @ 200 mls/hr Q24H IV Last administered on 03/25/16 22:30; Start 03/25/16 at 21:00 Guaifenesin (Robitussin Dm) 10 ml PRN Q6HRS PRN PO COUGH Last administered on 08:39; Start 03/25/16 at 23:30 Insulin Aspart (Novolog) BIDBFRMEAL SQ ; Start 03/25/16 at 16:30 Magnesium Sulfate/ Dextrose (Magnesium Sulfate PREMIX 4GM) 100 ml @ 25 mls/hr 1X ONCE IV Last administered on 03/26/16 10:18; Start 03/26/16 at 10:00; Stop 03/26/16 at 13:59 Montelukast Sodium (Singulair) 10 mg QHS PO ; Start 03/26/16 at 21:00 Potassium Chloride 20 meq 20 meq BIDAFTMEAL PO Last administered on 03/26/16 10:17; Start 03/26/16 at 09:30 Assessment Assessment 1. Pneumonia. 2. Exacerbation of chronic obstructive pulmonary disease. 3. Atrial fibrillation, chronic, not an anticoagulation candidate. 4. Chronic systolic congestive heart failure with ejection fraction of 40%. 5. Hypertension. 6. Hyperlipidemia. 7. Chronic respiratory failure, hypoxic with oxygen use at 2 liters by nasal cannula. 8. Gastroesophageal reflux disease. 9. Low back pain. 10. Chronic degenerative disk disease and lumbar spinal stenosis and mild scoliosis. 11. Gout. 12. Chronic renal insufficiency. 13. Diabetes mellitus. 14. Peripheral vascular disease. 15. Physical deconditioning. PLAN: I will start her on IV Rocephin, IV Zithromax and we are going to treat her for community-acquired pneumonia. Consult Dr. Styles for pulmonary evaluation and management. I will start her on breathing treatment. Monitor her for seizures and withdrawal because the patient has history of alcoholism. I discussed the condition and treatment with her . Monitor blood sugars, low-dose insulin sliding scale. Replace potassium. For details, please refer to the orders. I will also obtain urinalysis and culture if needed. Plan Plan For more details regarding further plans, please refer to the orders. SUSAN JACKSON MD Mar 26, 2016 12:57
[2016-03-26] MEDS ORDERED: PROMETH/CODEINE 6.25/10MG 5 ML SYRUP. PO ONE (13:30)
[2016-03-26] MEDS: methylPREDNISolone SOD SUCC PF 40 MG/ML VIAL. IV SCH ×2 (13:30→20:53)
[2016-03-26 15:00] VITALS: BP 136/87
[2016-03-26 17:18] LABS: BASO % 0 % (0-3); EOS % 0 % (0-3); HEMATOCRIT 38.4 % (36.0-47.0); HEMOGLOBIN 12.6 g/dL (12.0-15.5); LYMPH % 6 % (24-48); MEAN CORPUSCULAR HEMOGLOBIN 28 pg (25-35); MEAN CORPUSCULAR HGB CONC 33 g/dL (31-37); MEAN CORPUSCULAR VOLUME 86 fL (79-100); MONO % 4 % (0-9); NEUT % 90 % (31-73); PLATELET COUNT 269 x10^3/uL (140-400); RED BLOOD COUNT 4.46 x10^6/uL (3.50-5.40); RED CELL DISTRIBUTION WIDTH 15.1 % (11.5-14.5); WHITE BLOOD COUNT 15.5 x10^3/uL (4.0-11.0)
[2016-03-26 19:00] VITALS: BP 122/68
[2016-03-26 20:38] LABS: ANISOCYTOSIS SLIGHT; PLT ESTIMATE ADEQUATE (ADEQUATE)
[2016-03-26] MEDS: AZITHROMYCIN 500 MG in IV NORMAL SALINE 250ML 250 ML IV SCH (20:52)
[2016-03-26] MEDS: CEFTRIAXONE SODIUM 1 GM in IV NORMAL SALINE 100ML 100 ML IV SCH (20:54)
[2016-03-26] MEDS: MONTELUKAST SODIUM 10 MG TABLET. PO SCH (20:56)
[2016-03-26 23:00] VITALS: BP 124/80
[2016-03-27 03:04] VITALS: BP 124/74
[2016-03-27] MEDS: MAGNESIUM OXIDE 400 MG TABLET PO SCH ×4 (05:46→20:49)
[2016-03-27 07:00] VITALS: BP 134/71
[2016-03-27 07:00] LABS: ALBUMIN 2.4 g/dL (3.4-5.0); ALBUMIN/GLOBULIN RATIO 0.6 (1.0-1.7); CALCIUM 9.4 mg/dL (8.5-10.1); GFR 53.2; MAGNESIUM 2.9 mg/dL (1.8-2.4); TOTAL BILIRUBIN 0.3 mg/dL (0.2-1.0); TOTAL PROTEIN 6.3 g/dL (6.4-8.2)
[2016-03-27 07:04] LABS: POTASSIUM 4.6 mmol/L (3.5-5.1)
[2016-03-27] MEDS: IPRATRPIUM/ALBUTEROL 0.5/2.5MG 3 ML NEBU. NEB SCH ×4 (07:11→19:17)
[2016-03-27] MEDS: BUDESONIDE 0.5 MG/2 ML NEBU NEB SCH ×2 (07:11→19:17)
[2016-03-27] MEDS: INSULIN ASPART 300 UNITS/3 ML INSULN.PEN SQ SCH ×2 (07:30→17:37)
--- NOTE | 2016-03-27 08:16 | PDOC ---
PULMONARY PROGRESS NOTES Subjective has sob, cough, better, not able to cough sputum, has nasal congestion Vitals Vital Signs Date Time Temp Pulse Resp B/P Pulse Ox O2 Delivery O2 Flow Rate FiO2 03/27/16 07:11 93 Nasal Cannula 2.0 03/27/16 03:04 95.9 56 20 124/74 95.9 Comments ros as mentioned as above other sys otherwise neg General: Alert HEENT: Other (nc at perrl, throat nose clear) Lungs: Wheezing, Crackles Cardiovascular: S1, S2 Abdomen: Soft, Non-tender Neuro Exam: Alert, Oriented Extremities: No Edema Skin: Warm Labs Laboratory Tests Test 03/25/16 08:38 03/25/16 11:35 03/25/16 16:44 03/25/16 21:00 Glucose (Fingerstick) 183mg/dL (70-99) 144mg/dL (70-99) 136mg/dL (70-99) 165mg/dL (70-99) Test 03/26/16 05:00 03/26/16 07:52 03/26/16 08:30 03/26/16 11:38 Sodium Level 142mmol/L (136-145) Potassium Level 3.1mmol/L (3.5-5.1) Chloride Level 100mmol/L (98-107) Carbon Dioxide Level 32mmol/L (21-32) Anion Gap 10 (6-14) Blood Urea Nitrogen 40mg/dL (7-20) Creatinine 1.2mg/dL (0.6-1.0) Estimated GFR (Cockcroft-Gault) 43.1 BUN/Creatinine Ratio 33 (6-20) Glucose Level 95mg/dL (70-99) Calcium Level 9.6mg/dL (8.5-10.1) Magnesium Level 1.6mg/dL (1.8-2.4) Total Bilirubin 0.4mg/dL (0.2-1.0) Aspartate Amino Transf (AST/SGOT) 16U/L (15-37) Alanine Aminotransferase (ALT/SGPT) 11U/L (14-59) Alkaline Phosphatase 82U/L (46-116) Total Protein 6.9g/dL (6.4-8.2) Albumin 2.7g/dL (3.4-5.0) Albumin/Globulin Ratio 0.6 (1.0-1.7) Glucose (Fingerstick) 104mg/dL (70-99) 143mg/dL (70-99) Urine Collection Type Unknown Urine Color Yellow Urine Clarity Clear Urine pH 6.5 Urine Specific [place] 1.020 Urine Protein Negativemg/dL (NEG-TRACE) Urine Glucose (UA) Negativemg/dL (NEG) Urine Ketones (Stick) Negativemg/dL (NEG) Urine Blood Negative (NEG) Urine Nitrite Negative (NEG) Urine Bilirubin Negative (NEG) Urine Urobilinogen Dipstick 1.0mg/dL (0.2 mg/dL) Urine Leukocyte Esterase Negative (NEG) Urine RBC 0/HPF (0-2) Urine WBC 0/HPF (0-4) Urine Squamous Epithelial Cells Few/LPF Urine Bacteria 0/HPF (0-FEW) Test 03/26/16 16:31 03/26/16 16:45 03/26/16 20:28 03/27/16 05:35 Glucose (Fingerstick) 118mg/dL (70-99) 160mg/dL (70-99) White Blood Count 15.5x10^3/uL (4.0-11.0) Red Blood Count 4.46x10^6/uL (3.50-5.40) Hemoglobin 12.6g/dL (12.0-15.5) Hematocrit 38.4% (36.0-47.0) Mean Corpuscular Volume 86fL (79-100) Mean Corpuscular Hemoglobin 28pg (25-35) Mean Corpuscular Hemoglobin Concent 33g/dL (31-37) Red Cell Distribution Width 15.1% (11.5-14.5) Platelet Count 269x10^3/uL (140-400) Neutrophils (%) (Auto) 90% (31-73) Lymphocytes (%) (Auto) 6% (24-48) Monocytes (%) (Auto) 4% (0-9) Eosinophils (%) (Auto) 0% (0-3) Basophils (%) (Auto) 0% (0-3) Neutrophils # (Auto) 13.9x10^3uL (1.8-7.7) Lymphocytes # (Auto) 1.0x10^3/uL (1.0-4.8) Monocytes # (Auto) 0.5x10^3/uL (0.0-1.1) Eosinophils # (Auto) 0.0x10^3/uL (0.0-0.7) Basophils # (Auto) 0.0x10^3/uL (0.0-0.2) Segmented Neutrophils % 87% (35-66) Band Neutrophils % 5% (0-9) Lymphocytes % 6% (24-48) Monocytes % 2% (0-10) Platelet Estimate Adequate (ADEQUATE) Anisocytosis Slight Sodium Level 141mmol/L (136-145) Potassium Level 4.6mmol/L (3.5-5.1) Chloride Level 105mmol/L (98-107) Carbon Dioxide Level 31mmol/L (21-32) Anion Gap 5 (6-14) Blood Urea Nitrogen 32mg/dL (7-20) Creatinine 1.0mg/dL (0.6-1.0) Estimated GFR (Cockcroft-Gault) 53.2 BUN/Creatinine Ratio 32 (6-20) Glucose Level 144mg/dL (70-99) Calcium Level 9.4mg/dL (8.5-10.1) Magnesium Level 2.9mg/dL (1.8-2.4) Total Bilirubin 0.3mg/dL (0.2-1.0) Aspartate Amino Transf (AST/SGOT) 12U/L (15-37) Alanine Aminotransferase (ALT/SGPT) 9U/L (14-59) Alkaline Phosphatase 73U/L (46-116) Total Protein 6.3g/dL (6.4-8.2) Albumin 2.4g/dL (3.4-5.0) Albumin/Globulin Ratio 0.6 (1.0-1.7) Test 03/27/16 06:58 Glucose (Fingerstick) 124mg/dL (70-99) Laboratory Tests Test 03/26/16 08:30 03/26/16 11:38 03/26/16 16:31 03/26/16 16:45 Urine Collection Type Unknown Urine Color Yellow Urine Clarity Clear Urine pH 6.5 Urine Specific [place] 1.020 Urine Protein Negativemg/dL (NEG-TRACE) Urine Glucose (UA) Negativemg/dL (NEG) Urine Ketones (Stick) Negativemg/dL (NEG) Urine Blood Negative (NEG) Urine Nitrite Negative (NEG) Urine Bilirubin Negative (NEG) Urine Urobilinogen Dipstick 1.0mg/dL (0.2 mg/dL) Urine Leukocyte Esterase Negative (NEG) Urine RBC 0/HPF (0-2) Urine WBC 0/HPF (0-4) Urine Squamous Epithelial Cells Few/LPF Urine Bacteria 0/HPF (0-FEW) Glucose (Fingerstick) 143mg/dL (70-99) 118mg/dL (70-99) White Blood Count 15.5x10^3/uL (4.0-11.0) Red Blood Count 4.46x10^6/uL (3.50-5.40) Hemoglobin 12.6g/dL (12.0-15.5) Hematocrit 38.4% (36.0-47.0) Mean Corpuscular Volume 86fL (79-100) Mean Corpuscular Hemoglobin 28pg (25-35) Mean Corpuscular Hemoglobin Concent 33g/dL (31-37) Red Cell Distribution Width 15.1% (11.5-14.5) Platelet Count 269x10^3/uL (140-400) Neutrophils (%) (Auto) 90% (31-73) Lymphocytes (%) (Auto) 6% (24-48) Monocytes (%) (Auto) 4% (0-9) Eosinophils (%) (Auto) 0% (0-3) Basophils (%) (Auto) 0% (0-3) Neutrophils # (Auto) 13.9x10^3uL (1.8-7.7) Lymphocytes # (Auto) 1.0x10^3/uL (1.0-4.8) Monocytes # (Auto) 0.5x10^3/uL (0.0-1.1) Eosinophils # (Auto) 0.0x10^3/uL (0.0-0.7) Basophils # (Auto) 0.0x10^3/uL (0.0-0.2) Segmented Neutrophils % 87% (35-66) Band Neutrophils % 5% (0-9) Lymphocytes % 6% (24-48) Monocytes % 2% (0-10) Platelet Estimate Adequate (ADEQUATE) Anisocytosis Slight Test 03/26/16 20:28 03/27/16 05:35 03/27/16 06:58 Glucose (Fingerstick) 160mg/dL (70-99) 124mg/dL (70-99) Sodium Level 141mmol/L (136-145) Potassium Level 4.6mmol/L (3.5-5.1) Chloride Level 105mmol/L (98-107) Carbon Dioxide Level 31mmol/L (21-32) Anion Gap 5 (6-14) Blood Urea Nitrogen 32mg/dL (7-20) Creatinine 1.0mg/dL (0.6-1.0) Estimated GFR (Cockcroft-Gault) 53.2 BUN/Creatinine Ratio 32 (6-20) Glucose Level 144mg/dL (70-99) Calcium Level 9.4mg/dL (8.5-10.1) Magnesium Level 2.9mg/dL (1.8-2.4) Total Bilirubin 0.3mg/dL (0.2-1.0) Aspartate Amino Transf (AST/SGOT) 12U/L (15-37) Alanine Aminotransferase (ALT/SGPT) 9U/L (14-59) Alkaline Phosphatase 73U/L (46-116) Total Protein 6.3g/dL (6.4-8.2) Albumin 2.4g/dL (3.4-5.0) Albumin/Globulin Ratio 0.6 (1.0-1.7) Medications Active Scripts Medications Dose Route/Sig Days Date Category Potassium Chloride 10 Meq Capsule.er 10 Meq PO DAILY 03/25/16 Reported Furosemide 40 Mg Tablet 1 Tab PO DAILY 03/25/16 Reported Cefpodoxime Proxetil 200 Mg Tablet 1 Tab PO BID 12/02/15 Rx Vitamin D (Cholecalciferol (Vitamin D3)) 1,000 Unit Tablet 1,000 Unit PO DAILY 09/28/15 Rx Fluoxetine Hcl 20 Mg Capsule 20 Mg PO DAILY 09/28/15 Rx Protonix (Pantoprazole Sodium) 40 Mg Tablet 40 Mg PO DAILYAC 12/09/14 Rx [Ipratropium/Albuterol Sulfate] 3 ML Nebu 3 Ml NEB RTQID 12/09/14 Rx Tylenol (Acetaminophen) 325 Mg Tablet 650 Mg PO PRN Q6HRS PRN 12/09/14 Rx Tramadol Hcl 50 Mg Tablet 1 Tab PO PRN Q6HRS 09/19/14 Reported Metoprolol Tartrate 50 Mg Tablet 1 Tab PO BID 09/19/14 Reported Mag-Oxide (Magnesium Oxide) 400 Mg Tablet 400 Mg PO [id number] 09/19/14 Reported Folic Acid 1 Mg Tablet 1 Tab PO DAILY 09/19/14 Reported Digoxin 125 Mcg Tablet 125 Mcg PO DAILY 09/19/14 Reported Comments cxr reviewed, rll infilt Impression . IMPRESSION: 1. Dyspnea secondary to acute exacerbation of chronic obstructive pulmonary disease and right lower lobe pneumonia. 2. Abnormal chest x-ray with right lower lobe infiltrate and crackles on examination. This is consistent with community-acquired pneumonia. 3. Clinically, unlikely congestive heart failure. 4. Leukocytosis secondary to pneumonia. 5. Underlying severe chronic obstructive pulmonary disease with chronic respiratory failure on 2-1/2 to 3 liters of oxygen. 6. wheezing. Plan . RECOMMENDATION: 1. Continue antibiotics. 2. Continue bronchodilators. 3. Repeat chest x-ray in am 4. Continue oxygen to keep saturation 92-94%. 5. singulair 6. ics discussed w rn, pt JULITO ARAUJO MD Mar 27, 2016 08:16
[2016-03-27] MEDS: GUAIFENESIN DM 200MG/20MG 10 ML SYRUP. PO PRN ×3 (08:45→20:54)
[2016-03-27] MEDS: FLUOXETINE HCL 20 MG CAPSULE PO SCH (08:45)
[2016-03-27] MEDS: FOLIC ACID 1 MG TABLET PO SCH (08:45)
[2016-03-27] MEDS: METOPROLOL TART IMMED RELEASE 50 MG TABLET PO SCH ×2 (08:46→20:49)
[2016-03-27] MEDS: PANTOPRAZOLE 40 MG TABLET. PO SCH (08:46)
[2016-03-27] MEDS: POTASSIUM CHLORIDE 20 MEQ TABLET.ER. PO SCH ×2 (08:47→17:39)
[2016-03-27] MEDS: CHOLECALCIFEROL (VITAMIN D3) 1,000 UNIT TABLET PO SCH (08:47)
[2016-03-27] MEDS: DIGOXIN 125 MCG TABLET PO SCH (08:47)
[2016-03-27] MEDS: methylPREDNISolone SOD SUCC PF 40 MG/ML VIAL. IV SCH ×3 (08:48→20:51)
--- NOTE | 2016-03-27 10:14 | RAD ---
Two view chest History:Cough and shortness of breath, abnormal chest x-ray . PA and lateral views of the chest are submitted. Comparison: 03/24/2016 and 11/29/2015 Findings: Patient is rotated for exam. There is again tortuous, possibly ectatic thoracic aorta. Pericardial cardiac silhouette is again enlarged. There is emphysema. There is stable mild blunting of the costophrenic sulci as seen on the lateral view. There is no pneumothorax. There is somewhat increased linear opacity right lung base likely due to atelectasis, other similar mild medial right base infiltrate or atelectasis. There is again eventration left hemidiaphragm. There is thoracic scoliosis. Impression: 1. There is somewhat increased right base atelectasis, more medial right base atelectasis or infiltrate stable. 2. There is again tortuous, possibly ectatic thoracic aorta. 3. There is emphysema.
[2016-03-27 11:00] VITALS: BP 140/78
[2016-03-27 11:19] LABS: BASO % 0 % (0-3); EOS % 0 % (0-3); HEMATOCRIT 38.6 % (36.0-47.0); HEMOGLOBIN 12.5 g/dL (12.0-15.5); LYMPH # 1.3 x10^3/uL (1.0-4.8); LYMPH % 12 % (24-48); MEAN CORPUSCULAR HEMOGLOBIN 29 pg (25-35); MEAN CORPUSCULAR HGB CONC 33 g/dL (31-37); MEAN CORPUSCULAR VOLUME 89 fL (79-100); MONO % 4 % (0-9); NEUT % 84 % (31-73); PLATELET COUNT 270 x10^3/uL (140-400); RED BLOOD COUNT 4.32 x10^6/uL (3.50-5.40); RED CELL DISTRIBUTION WIDTH 15.3 % (11.5-14.5); WHITE BLOOD COUNT 10.7 x10^3/uL (4.0-11.0)
--- NOTE | 2016-03-27 13:25 | PDOC ---
IM PROGRESS NOTES- Subjective Subjective Had excessive coughing ,congestion yesterday- became confused with Phenergan and Codeine. On IV steroids. Objective Vitals Vital Signs Date Time Temp Pulse Resp B/P Pulse Ox O2 Delivery O2 Flow Rate FiO2 03/27/16 11:22 Nasal Cannula 2.0 03/27/16 11:00 97.5 70 18 140/78 97 97.5 Input & Output Intake and Output 03/27/16 07:00 Intake Total 1110 ml Balance 1110 ml Intake Oral 760 ml IV Total 350 ml # Voids 4 # Bowel Movements 2 Physical Exam Physical Exam General appearance - alert,ill appearing, and in no distress and oriented to person, place, and time Mental Status - alert, oriented to person, place, and time, affect appropriate to mood Head - normal Chest - few bilateral wheezes Heart - S1 and S2 normal Abdomen - soft, nontender, nondistended, no masses or organomegaly Neurological - alert and oriented Musculoskeletal - no muscular tenderness noted Extremities - no pedal edema Skin - warm and dry Labs Laboratory Tests Test 03/25/16 16:44 03/25/16 21:00 03/26/16 05:00 03/26/16 07:52 Glucose (Fingerstick) 136mg/dL (70-99) 165mg/dL (70-99) 104mg/dL (70-99) Sodium Level 142mmol/L (136-145) Potassium Level 3.1mmol/L (3.5-5.1) Chloride Level 100mmol/L (98-107) Carbon Dioxide Level 32mmol/L (21-32) Anion Gap 10 (6-14) Blood Urea Nitrogen 40mg/dL (7-20) Creatinine 1.2mg/dL (0.6-1.0) Estimated GFR (Cockcroft-Gault) 43.1 BUN/Creatinine Ratio 33 (6-20) Glucose Level 95mg/dL (70-99) Calcium Level 9.6mg/dL (8.5-10.1) Magnesium Level 1.6mg/dL (1.8-2.4) Total Bilirubin 0.4mg/dL (0.2-1.0) Aspartate Amino Transf (AST/SGOT) 16U/L (15-37) Alanine Aminotransferase (ALT/SGPT) 11U/L (14-59) Alkaline Phosphatase 82U/L (46-116) Total Protein 6.9g/dL (6.4-8.2) Albumin 2.7g/dL (3.4-5.0) Albumin/Globulin Ratio 0.6 (1.0-1.7) Test 03/26/16 08:30 03/26/16 11:38 03/26/16 16:31 03/26/16 16:45 Urine Collection Type Unknown Urine Color Yellow Urine Clarity Clear Urine pH 6.5 Urine Specific [place] 1.020 Urine Protein Negativemg/dL (NEG-TRACE) Urine Glucose (UA) Negativemg/dL (NEG) Urine Ketones (Stick) Negativemg/dL (NEG) Urine Blood Negative (NEG) Urine Nitrite Negative (NEG) Urine Bilirubin Negative (NEG) Urine Urobilinogen Dipstick 1.0mg/dL (0.2 mg/dL) Urine Leukocyte Esterase Negative (NEG) Urine RBC 0/HPF (0-2) Urine WBC 0/HPF (0-4) Urine Squamous Epithelial Cells Few/LPF Urine Bacteria 0/HPF (0-FEW) Glucose (Fingerstick) 143mg/dL (70-99) 118mg/dL (70-99) White Blood Count 15.5x10^3/uL (4.0-11.0) Red Blood Count 4.46x10^6/uL (3.50-5.40) Hemoglobin 12.6g/dL (12.0-15.5) Hematocrit 38.4% (36.0-47.0) Mean Corpuscular Volume 86fL (79-100) Mean Corpuscular Hemoglobin 28pg (25-35) Mean Corpuscular Hemoglobin Concent 33g/dL (31-37) Red Cell Distribution Width 15.1% (11.5-14.5) Platelet Count 269x10^3/uL (140-400) Neutrophils (%) (Auto) 90% (31-73) Lymphocytes (%) (Auto) 6% (24-48) Monocytes (%) (Auto) 4% (0-9) Eosinophils (%) (Auto) 0% (0-3) Basophils (%) (Auto) 0% (0-3) Neutrophils # (Auto) 13.9x10^3uL (1.8-7.7) Lymphocytes # (Auto) 1.0x10^3/uL (1.0-4.8) Monocytes # (Auto) 0.5x10^3/uL (0.0-1.1) Eosinophils # (Auto) 0.0x10^3/uL (0.0-0.7) Basophils # (Auto) 0.0x10^3/uL (0.0-0.2) Segmented Neutrophils % 87% (35-66) Band Neutrophils % 5% (0-9) Lymphocytes % 6% (24-48) Monocytes % 2% (0-10) Platelet Estimate Adequate (ADEQUATE) Anisocytosis Slight Test 03/26/16 20:28 03/27/16 05:35 03/27/16 06:58 03/27/16 11:08 Glucose (Fingerstick) 160mg/dL (70-99) 124mg/dL (70-99) 124mg/dL (70-99) White Blood Count 10.7x10^3/uL (4.0-11.0) Red Blood Count 4.32x10^6/uL (3.50-5.40) Hemoglobin 12.5g/dL (12.0-15.5) Hematocrit 38.6% (36.0-47.0) Mean Corpuscular Volume 89fL (79-100) Mean Corpuscular Hemoglobin 29pg (25-35) Mean Corpuscular Hemoglobin Concent 33g/dL (31-37) Red Cell Distribution Width 15.3% (11.5-14.5) Platelet Count 270x10^3/uL (140-400) Neutrophils (%) (Auto) 84% (31-73) Lymphocytes (%) (Auto) 12% (24-48) Monocytes (%) (Auto) 4% (0-9) Eosinophils (%) (Auto) 0% (0-3) Basophils (%) (Auto) 0% (0-3) Neutrophils # (Auto) 9.0x10^3uL (1.8-7.7) Lymphocytes # (Auto) 1.3x10^3/uL (1.0-4.8) Monocytes # (Auto) 0.4x10^3/uL (0.0-1.1) Eosinophils # (Auto) 0.0x10^3/uL (0.0-0.7) Basophils # (Auto) 0.0x10^3/uL (0.0-0.2) Sodium Level 141mmol/L (136-145) Potassium Level 4.6mmol/L (3.5-5.1) Chloride Level 105mmol/L (98-107) Carbon Dioxide Level 31mmol/L (21-32) Anion Gap 5 (6-14) Blood Urea Nitrogen 32mg/dL (7-20) Creatinine 1.0mg/dL (0.6-1.0) Estimated GFR (Cockcroft-Gault) 53.2 BUN/Creatinine Ratio 32 (6-20) Glucose Level 144mg/dL (70-99) Calcium Level 9.4mg/dL (8.5-10.1) Magnesium Level 2.9mg/dL (1.8-2.4) Total Bilirubin 0.3mg/dL (0.2-1.0) Aspartate Amino Transf (AST/SGOT) 12U/L (15-37) Alanine Aminotransferase (ALT/SGPT) 9U/L (14-59) Alkaline Phosphatase 73U/L (46-116) Total Protein 6.3g/dL (6.4-8.2) Albumin 2.4g/dL (3.4-5.0) Albumin/Globulin Ratio 0.6 (1.0-1.7) Laboratory Tests Test 03/26/16 16:31 03/26/16 16:45 03/26/16 20:28 03/27/16 05:35 Glucose (Fingerstick) 118mg/dL (70-99) 160mg/dL (70-99) White Blood Count 15.5x10^3/uL (4.0-11.0) 10.7x10^3/uL (4.0-11.0) Red Blood Count 4.46x10^6/uL (3.50-5.40) 4.32x10^6/uL (3.50-5.40) Hemoglobin 12.6g/dL (12.0-15.5) 12.5g/dL (12.0-15.5) Hematocrit 38.4% (36.0-47.0) 38.6% (36.0-47.0) Mean Corpuscular Volume 86fL (79-100) 89fL (79-100) Mean Corpuscular Hemoglobin 28pg (25-35) 29pg (25-35) Mean Corpuscular Hemoglobin Concent 33g/dL (31-37) 33g/dL (31-37) Red Cell Distribution Width 15.1% (11.5-14.5) 15.3% (11.5-14.5) Platelet Count 269x10^3/uL (140-400) 270x10^3/uL (140-400) Neutrophils (%) (Auto) 90% (31-73) 84% (31-73) Lymphocytes (%) (Auto) 6% (24-48) 12% (24-48) Monocytes (%) (Auto) 4% (0-9) 4% (0-9) Eosinophils (%) (Auto) 0% (0-3) 0% (0-3) Basophils (%) (Auto) 0% (0-3) 0% (0-3) Neutrophils # (Auto) 13.9x10^3uL (1.8-7.7) 9.0x10^3uL (1.8-7.7) Lymphocytes # (Auto) 1.0x10^3/uL (1.0-4.8) 1.3x10^3/uL (1.0-4.8) Monocytes # (Auto) 0.5x10^3/uL (0.0-1.1) 0.4x10^3/uL (0.0-1.1) Eosinophils # (Auto) 0.0x10^3/uL (0.0-0.7) 0.0x10^3/uL (0.0-0.7) Basophils # (Auto) 0.0x10^3/uL (0.0-0.2) 0.0x10^3/uL (0.0-0.2) Segmented Neutrophils % 87% (35-66) Band Neutrophils % 5% (0-9) Lymphocytes % 6% (24-48) Monocytes % 2% (0-10) Platelet Estimate Adequate (ADEQUATE) Anisocytosis Slight Sodium Level 141mmol/L (136-145) Potassium Level 4.6mmol/L (3.5-5.1) Chloride Level 105mmol/L (98-107) Carbon Dioxide Level 31mmol/L (21-32) Anion Gap 5 (6-14) Blood Urea Nitrogen 32mg/dL (7-20) Creatinine 1.0mg/dL (0.6-1.0) Estimated GFR (Cockcroft-Gault) 53.2 BUN/Creatinine Ratio 32 (6-20) Glucose Level 144mg/dL (70-99) Calcium Level 9.4mg/dL (8.5-10.1) Magnesium Level 2.9mg/dL (1.8-2.4) Total Bilirubin 0.3mg/dL (0.2-1.0) Aspartate Amino Transf (AST/SGOT) 12U/L (15-37) Alanine Aminotransferase (ALT/SGPT) 9U/L (14-59) Alkaline Phosphatase 73U/L (46-116) Total Protein 6.3g/dL (6.4-8.2) Albumin 2.4g/dL (3.4-5.0) Albumin/Globulin Ratio 0.6 (1.0-1.7) Test 03/27/16 06:58 03/27/16 11:08 Glucose (Fingerstick) 124mg/dL (70-99) 124mg/dL (70-99) Meds Current Medications Methylprednisolone Sodium Succinate (Solu-Medrol 40mg Vial) 60 mg TID IV Last administered on 03/27/16 13:12; Start 03/26/16 at 14:00 Montelukast Sodium (Singulair) 10 mg QHS PO Last administered on 03/26/16 20: 56; Start 03/26/16 at 21:00 Promethazine HCl/ Codeine (Phenergan With Codeine) 5 ml 1X ONCE PO Last administered on 03/26/16 13:30; Start 03/26/16 at 13:30; Stop 03/26/16 at 13:31 ; Status DC Assessment Assessment 1. Pneumonia. 2. Exacerbation of chronic obstructive pulmonary disease. 3. Atrial fibrillation, chronic, not an anticoagulation candidate. 4. Chronic systolic congestive heart failure with ejection fraction of 40%. 5. Hypertension. 6. Hyperlipidemia. 7. Chronic respiratory failure, hypoxic with oxygen use at 2 liters by nasal cannula. 8. Gastroesophageal reflux disease. 9. Low back pain. 10. Chronic degenerative disk disease and lumbar spinal stenosis and mild scoliosis. 11. Gout. 12. Chronic renal insufficiency. 13. Diabetes mellitus. 14. Peripheral vascular disease. 15. Physical deconditioning. PLAN: I will start her on IV Rocephin, IV Zithromax and we are going to treat her for community-acquired pneumonia. Consult Dr. Styles for pulmonary evaluation and management. I will start her on breathing treatment. Monitor her for seizures and withdrawal because the patient has history of alcoholism. I discussed the condition and treatment with her . Monitor blood sugars, low-dose insulin sliding scale. Replace potassium. For details, please refer to the orders. I will also obtain urinalysis and culture if needed. IV solumedrol for jcough,wheezing. Plan Plan For more details regarding further plans, please refer to the orders. SUSAN JACKSON MD Mar 27, 2016 13:25
[2016-03-27 15:00] VITALS: BP 113/61
[2016-03-27 19:00] VITALS: BP 133/73
[2016-03-27] MEDS: MONTELUKAST SODIUM 10 MG TABLET. PO SCH (20:49)
[2016-03-27] MEDS: CEFTRIAXONE SODIUM 1 GM in IV NORMAL SALINE 100ML 100 ML IV SCH (20:55)
[2016-03-27 23:00] VITALS: BP 119/66
[2016-03-28 03:03] VITALS: BP 134/94
[2016-03-28] MEDS: GUAIFENESIN DM 200MG/20MG 10 ML SYRUP. PO PRN ×3 (03:27→14:47)
[2016-03-28 05:42] LABS: ALBUMIN 2.7 g/dL (3.4-5.0); ALBUMIN/GLOBULIN RATIO 0.8 (1.0-1.7); CALCIUM 9.4 mg/dL (8.5-10.1); CREATININE 1.1 mg/dL (0.6-1.0); GFR 47.7; POTASSIUM 5.2 mmol/L (3.5-5.1); TOTAL BILIRUBIN 0.2 mg/dL (0.2-1.0); TOTAL PROTEIN 6.3 g/dL (6.4-8.2)
[2016-03-28] MEDS: MAGNESIUM OXIDE 400 MG TABLET PO SCH ×4 (06:26→20:51)
[2016-03-28 07:00] VITALS: BP 156/104
[2016-03-28] MEDS: IPRATRPIUM/ALBUTEROL 0.5/2.5MG 3 ML NEBU. NEB SCH ×4 (07:22→18:30)
[2016-03-28] MEDS: BUDESONIDE 0.5 MG/2 ML NEBU NEB SCH ×2 (07:24→18:31)
[2016-03-28] MEDS: INSULIN ASPART 300 UNITS/3 ML INSULN.PEN SQ SCH ×3 (07:30→18:15)
[2016-03-28] MEDS: methylPREDNISolone SOD SUCC PF 40 MG/ML VIAL. IV SCH ×2 (08:48→14:36)
[2016-03-28] MEDS: POTASSIUM CHLORIDE 20 MEQ TABLET.ER. PO SCH (08:50)
[2016-03-28] MEDS: METOPROLOL TART IMMED RELEASE 50 MG TABLET PO SCH ×2 (08:52→20:51)
[2016-03-28] MEDS: PANTOPRAZOLE 40 MG TABLET. PO SCH (08:54)
[2016-03-28] MEDS: FLUOXETINE HCL 20 MG CAPSULE PO SCH (08:55)
[2016-03-28] MEDS: FOLIC ACID 1 MG TABLET PO SCH (08:56)
[2016-03-28] MEDS: CHOLECALCIFEROL (VITAMIN D3) 1,000 UNIT TABLET PO SCH (08:57)
[2016-03-28] MEDS: DIGOXIN 125 MCG TABLET PO SCH (08:58)
--- NOTE | 2016-03-28 09:56 | PDOC ---
IM PROGRESS NOTES- Subjective Subjective Had excessive coughing ,congestion yesterday- became confused with Phenergan and Codeine. On IV steroids. Objective Vitals Vital Signs Date Time Temp Pulse Resp B/P Pulse Ox O2 Delivery O2 Flow Rate FiO2 03/28/16 08:58 93 156/104 03/28/16 07:24 100 Nasal Cannula 2.0 03/28/16 03:03 97.5 20 97.5 Input & Output Intake and Output 03/28/16 07:00 Intake Total 1170 ml Balance 1170 ml Intake Oral 1070 ml IV Total 100 ml Physical Exam Physical Exam General appearance - alert,ill appearing, and in no distress and oriented to person, place, and time Mental Status - alert, oriented to person, place, and time, affect appropriate to mood Head - normal Chest - few bilateral wheezes Heart - S1 and S2 normal Abdomen - soft, nontender, nondistended, no masses or organomegaly Neurological - alert and oriented Musculoskeletal - no muscular tenderness noted Extremities - no pedal edema Skin - warm and dry Labs Laboratory Tests Test 03/26/16 11:38 03/26/16 16:31 03/26/16 16:45 03/26/16 20:28 Glucose (Fingerstick) 143mg/dL (70-99) 118mg/dL (70-99) 160mg/dL (70-99) White Blood Count 15.5x10^3/uL (4.0-11.0) Red Blood Count 4.46x10^6/uL (3.50-5.40) Hemoglobin 12.6g/dL (12.0-15.5) Hematocrit 38.4% (36.0-47.0) Mean Corpuscular Volume 86fL (79-100) Mean Corpuscular Hemoglobin 28pg (25-35) Mean Corpuscular Hemoglobin Concent 33g/dL (31-37) Red Cell Distribution Width 15.1% (11.5-14.5) Platelet Count 269x10^3/uL (140-400) Neutrophils (%) (Auto) 90% (31-73) Lymphocytes (%) (Auto) 6% (24-48) Monocytes (%) (Auto) 4% (0-9) Eosinophils (%) (Auto) 0% (0-3) Basophils (%) (Auto) 0% (0-3) Neutrophils # (Auto) 13.9x10^3uL (1.8-7.7) Lymphocytes # (Auto) 1.0x10^3/uL (1.0-4.8) Monocytes # (Auto) 0.5x10^3/uL (0.0-1.1) Eosinophils # (Auto) 0.0x10^3/uL (0.0-0.7) Basophils # (Auto) 0.0x10^3/uL (0.0-0.2) Segmented Neutrophils % 87% (35-66) Band Neutrophils % 5% (0-9) Lymphocytes % 6% (24-48) Monocytes % 2% (0-10) Platelet Estimate Adequate (ADEQUATE) Anisocytosis Slight Test 03/27/16 05:35 03/27/16 06:58 03/27/16 11:08 03/27/16 16:28 White Blood Count 10.7x10^3/uL (4.0-11.0) Red Blood Count 4.32x10^6/uL (3.50-5.40) Hemoglobin 12.5g/dL (12.0-15.5) Hematocrit 38.6% (36.0-47.0) Mean Corpuscular Volume 89fL (79-100) Mean Corpuscular Hemoglobin 29pg (25-35) Mean Corpuscular Hemoglobin Concent 33g/dL (31-37) Red Cell Distribution Width 15.3% (11.5-14.5) Platelet Count 270x10^3/uL (140-400) Neutrophils (%) (Auto) 84% (31-73) Lymphocytes (%) (Auto) 12% (24-48) Monocytes (%) (Auto) 4% (0-9) Eosinophils (%) (Auto) 0% (0-3) Basophils (%) (Auto) 0% (0-3) Neutrophils # (Auto) 9.0x10^3uL (1.8-7.7) Lymphocytes # (Auto) 1.3x10^3/uL (1.0-4.8) Monocytes # (Auto) 0.4x10^3/uL (0.0-1.1) Eosinophils # (Auto) 0.0x10^3/uL (0.0-0.7) Basophils # (Auto) 0.0x10^3/uL (0.0-0.2) Sodium Level 141mmol/L (136-145) Potassium Level 4.6mmol/L (3.5-5.1) Chloride Level 105mmol/L (98-107) Carbon Dioxide Level 31mmol/L (21-32) Anion Gap 5 (6-14) Blood Urea Nitrogen 32mg/dL (7-20) Creatinine 1.0mg/dL (0.6-1.0) Estimated GFR (Cockcroft-Gault) 53.2 BUN/Creatinine Ratio 32 (6-20) Glucose Level 144mg/dL (70-99) Calcium Level 9.4mg/dL (8.5-10.1) Magnesium Level 2.9mg/dL (1.8-2.4) Total Bilirubin 0.3mg/dL (0.2-1.0) Aspartate Amino Transf (AST/SGOT) 12U/L (15-37) Alanine Aminotransferase (ALT/SGPT) 9U/L (14-59) Alkaline Phosphatase 73U/L (46-116) Total Protein 6.3g/dL (6.4-8.2) Albumin 2.4g/dL (3.4-5.0) Albumin/Globulin Ratio 0.6 (1.0-1.7) Glucose (Fingerstick) 124mg/dL (70-99) 124mg/dL (70-99) 160mg/dL (70-99) Test 03/27/16 20:29 03/28/16 04:10 03/28/16 08:01 Glucose (Fingerstick) 209mg/dL (70-99) 121mg/dL (70-99) Sodium Level 139mmol/L (136-145) Potassium Level 5.2mmol/L (3.5-5.1) Chloride Level 103mmol/L (98-107) Carbon Dioxide Level 27mmol/L (21-32) Anion Gap 9 (6-14) Blood Urea Nitrogen 42mg/dL (7-20) Creatinine 1.1mg/dL (0.6-1.0) Estimated GFR (Cockcroft-Gault) 47.7 BUN/Creatinine Ratio 38 (6-20) Glucose Level 178mg/dL (70-99) Calcium Level 9.4mg/dL (8.5-10.1) Total Bilirubin 0.2mg/dL (0.2-1.0) Aspartate Amino Transf (AST/SGOT) 12U/L (15-37) Alanine Aminotransferase (ALT/SGPT) 13U/L (14-59) Alkaline Phosphatase 75U/L (46-116) Total Protein 6.3g/dL (6.4-8.2) Albumin 2.7g/dL (3.4-5.0) Albumin/Globulin Ratio 0.8 (1.0-1.7) Laboratory Tests Test 03/27/16 11:08 03/27/16 16:28 03/27/16 20:29 03/28/16 04:10 Glucose (Fingerstick) 124mg/dL (70-99) 160mg/dL (70-99) 209mg/dL (70-99) Sodium Level 139mmol/L (136-145) Potassium Level 5.2mmol/L (3.5-5.1) Chloride Level 103mmol/L (98-107) Carbon Dioxide Level 27mmol/L (21-32) Anion Gap 9 (6-14) Blood Urea Nitrogen 42mg/dL (7-20) Creatinine 1.1mg/dL (0.6-1.0) Estimated GFR (Cockcroft-Gault) 47.7 BUN/Creatinine Ratio 38 (6-20) Glucose Level 178mg/dL (70-99) Calcium Level 9.4mg/dL (8.5-10.1) Total Bilirubin 0.2mg/dL (0.2-1.0) Aspartate Amino Transf (AST/SGOT) 12U/L (15-37) Alanine Aminotransferase (ALT/SGPT) 13U/L (14-59) Alkaline Phosphatase 75U/L (46-116) Total Protein 6.3g/dL (6.4-8.2) Albumin 2.7g/dL (3.4-5.0) Albumin/Globulin Ratio 0.8 (1.0-1.7) Test 03/28/16 08:01 Glucose (Fingerstick) 121mg/dL (70-99) Assessment Assessment 1. Pneumonia. 2. Exacerbation of chronic obstructive pulmonary disease. 3. Atrial fibrillation, chronic, not an anticoagulation candidate. 4. Chronic systolic congestive heart failure with ejection fraction of 40%. 5. Hypertension. 6. Hyperlipidemia. 7. Chronic respiratory failure, hypoxic with oxygen use at 2 liters by nasal cannula. 8. Gastroesophageal reflux disease. 9. Low back pain. 10. Chronic degenerative disk disease and lumbar spinal stenosis and mild scoliosis. 11. Gout. 12. Chronic renal insufficiency. 13. Diabetes mellitus. 14. Peripheral vascular disease. 15. Physical deconditioning. PLAN: I will start her on IV Rocephin, IV Zithromax and we are going to treat her for community-acquired pneumonia. Consult Dr. Styles for pulmonary evaluation and management. I will start her on breathing treatment. Monitor her for seizures and withdrawal because the patient has history of alcoholism. I discussed the condition and treatment with her . Monitor blood sugars, low-dose insulin sliding scale. Replace potassium. For details, please refer to the orders. I will also obtain urinalysis and culture if needed. Decrease IV solumedrol forto bid. Leukocytosis is improving. Hyperkalemia - d/c KCL. Weakness- PT/OT. Plan Plan For more details regarding further plans, please refer to the orders. SUSAN JACKSON MD Mar 28, 2016 09:56
--- NOTE | 2016-03-28 09:59 | PDOC ---
IM PROGRESS NOTES- Subjective Subjective continues with cough and short of breath. Objective Objective alert, weak, Vitals Vital Signs Date Time Temp Pulse Resp B/P Pulse Ox O2 Delivery O2 Flow Rate FiO2 03/28/16 08:58 93 156/104 03/28/16 07:24 100 Nasal Cannula 2.0 03/28/16 03:03 97.5 20 97.5 Input & Output Intake and Output 03/28/16 07:00 Intake Total 1170 ml Balance 1170 ml Intake Oral 1070 ml IV Total 100 ml Physical Exam Physical Exam General appearance - alert,ill appearing, and in no distress and oriented to person, place, and time Mental Status - alert, oriented to person, place, and time, affect appropriate to mood Head - normal Chest - few bilateral wheezes Heart - S1 and S2 normal Abdomen - soft, nontender, nondistended, BS+ Neurological - no acute focal neurological deficit noted. Musculoskeletal - no muscular tenderness noted Extremities - no pedal edema Skin - warm and dry Labs Laboratory Tests Test 03/26/16 11:38 03/26/16 16:31 03/26/16 16:45 03/26/16 20:28 Glucose (Fingerstick) 143mg/dL (70-99) 118mg/dL (70-99) 160mg/dL (70-99) White Blood Count 15.5x10^3/uL (4.0-11.0) Red Blood Count 4.46x10^6/uL (3.50-5.40) Hemoglobin 12.6g/dL (12.0-15.5) Hematocrit 38.4% (36.0-47.0) Mean Corpuscular Volume 86fL (79-100) Mean Corpuscular Hemoglobin 28pg (25-35) Mean Corpuscular Hemoglobin Concent 33g/dL (31-37) Red Cell Distribution Width 15.1% (11.5-14.5) Platelet Count 269x10^3/uL (140-400) Neutrophils (%) (Auto) 90% (31-73) Lymphocytes (%) (Auto) 6% (24-48) Monocytes (%) (Auto) 4% (0-9) Eosinophils (%) (Auto) 0% (0-3) Basophils (%) (Auto) 0% (0-3) Neutrophils # (Auto) 13.9x10^3uL (1.8-7.7) Lymphocytes # (Auto) 1.0x10^3/uL (1.0-4.8) Monocytes # (Auto) 0.5x10^3/uL (0.0-1.1) Eosinophils # (Auto) 0.0x10^3/uL (0.0-0.7) Basophils # (Auto) 0.0x10^3/uL (0.0-0.2) Segmented Neutrophils % 87% (35-66) Band Neutrophils % 5% (0-9) Lymphocytes % 6% (24-48) Monocytes % 2% (0-10) Platelet Estimate Adequate (ADEQUATE) Anisocytosis Slight Test 03/27/16 05:35 03/27/16 06:58 03/27/16 11:08 03/27/16 16:28 White Blood Count 10.7x10^3/uL (4.0-11.0) Red Blood Count 4.32x10^6/uL (3.50-5.40) Hemoglobin 12.5g/dL (12.0-15.5) Hematocrit 38.6% (36.0-47.0) Mean Corpuscular Volume 89fL (79-100) Mean Corpuscular Hemoglobin 29pg (25-35) Mean Corpuscular Hemoglobin Concent 33g/dL (31-37) Red Cell Distribution Width 15.3% (11.5-14.5) Platelet Count 270x10^3/uL (140-400) Neutrophils (%) (Auto) 84% (31-73) Lymphocytes (%) (Auto) 12% (24-48) Monocytes (%) (Auto) 4% (0-9) Eosinophils (%) (Auto) 0% (0-3) Basophils (%) (Auto) 0% (0-3) Neutrophils # (Auto) 9.0x10^3uL (1.8-7.7) Lymphocytes # (Auto) 1.3x10^3/uL (1.0-4.8) Monocytes # (Auto) 0.4x10^3/uL (0.0-1.1) Eosinophils # (Auto) 0.0x10^3/uL (0.0-0.7) Basophils # (Auto) 0.0x10^3/uL (0.0-0.2) Sodium Level 141mmol/L (136-145) Potassium Level 4.6mmol/L (3.5-5.1) Chloride Level 105mmol/L (98-107) Carbon Dioxide Level 31mmol/L (21-32) Anion Gap 5 (6-14) Blood Urea Nitrogen 32mg/dL (7-20) Creatinine 1.0mg/dL (0.6-1.0) Estimated GFR (Cockcroft-Gault) 53.2 BUN/Creatinine Ratio 32 (6-20) Glucose Level 144mg/dL (70-99) Calcium Level 9.4mg/dL (8.5-10.1) Magnesium Level 2.9mg/dL (1.8-2.4) Total Bilirubin 0.3mg/dL (0.2-1.0) Aspartate Amino Transf (AST/SGOT) 12U/L (15-37) Alanine Aminotransferase (ALT/SGPT) 9U/L (14-59) Alkaline Phosphatase 73U/L (46-116) Total Protein 6.3g/dL (6.4-8.2) Albumin 2.4g/dL (3.4-5.0) Albumin/Globulin Ratio 0.6 (1.0-1.7) Glucose (Fingerstick) 124mg/dL (70-99) 124mg/dL (70-99) 160mg/dL (70-99) Test 03/27/16 20:29 03/28/16 04:10 03/28/16 08:01 Glucose (Fingerstick) 209mg/dL (70-99) 121mg/dL (70-99) Sodium Level 139mmol/L (136-145) Potassium Level 5.2mmol/L (3.5-5.1) Chloride Level 103mmol/L (98-107) Carbon Dioxide Level 27mmol/L (21-32) Anion Gap 9 (6-14) Blood Urea Nitrogen 42mg/dL (7-20) Creatinine 1.1mg/dL (0.6-1.0) Estimated GFR (Cockcroft-Gault) 47.7 BUN/Creatinine Ratio 38 (6-20) Glucose Level 178mg/dL (70-99) Calcium Level 9.4mg/dL (8.5-10.1) Total Bilirubin 0.2mg/dL (0.2-1.0) Aspartate Amino Transf (AST/SGOT) 12U/L (15-37) Alanine Aminotransferase (ALT/SGPT) 13U/L (14-59) Alkaline Phosphatase 75U/L (46-116) Total Protein 6.3g/dL (6.4-8.2) Albumin 2.7g/dL (3.4-5.0) Albumin/Globulin Ratio 0.8 (1.0-1.7) Laboratory Tests Test 03/27/16 11:08 03/27/16 16:28 03/27/16 20:29 03/28/16 04:10 Glucose (Fingerstick) 124mg/dL (70-99) 160mg/dL (70-99) 209mg/dL (70-99) Sodium Level 139mmol/L (136-145) Potassium Level 5.2mmol/L (3.5-5.1) Chloride Level 103mmol/L (98-107) Carbon Dioxide Level 27mmol/L (21-32) Anion Gap 9 (6-14) Blood Urea Nitrogen 42mg/dL (7-20) Creatinine 1.1mg/dL (0.6-1.0) Estimated GFR (Cockcroft-Gault) 47.7 BUN/Creatinine Ratio 38 (6-20) Glucose Level 178mg/dL (70-99) Calcium Level 9.4mg/dL (8.5-10.1) Total Bilirubin 0.2mg/dL (0.2-1.0) Aspartate Amino Transf (AST/SGOT) 12U/L (15-37) Alanine Aminotransferase (ALT/SGPT) 13U/L (14-59) Alkaline Phosphatase 75U/L (46-116) Total Protein 6.3g/dL (6.4-8.2) Albumin 2.7g/dL (3.4-5.0) Albumin/Globulin Ratio 0.8 (1.0-1.7) Test 03/28/16 08:01 Glucose (Fingerstick) 121mg/dL (70-99) Assessment Assessment 1. Pneumonia. 2. Exacerbation of chronic obstructive pulmonary disease. 3. Atrial fibrillation, chronic, not an anticoagulation candidate. 4. Chronic systolic congestive heart failure with ejection fraction of 40%. 5. Hypertension. 6. Hyperlipidemia. 7. Chronic respiratory failure, hypoxic with oxygen use at 2 liters by nasal cannula. 8. Gastroesophageal reflux disease. 9. Low back pain. 10. Chronic degenerative disk disease and lumbar spinal stenosis and mild scoliosis. 11. Gout. 12. Chronic renal insufficiency. 13. Diabetes mellitus. 14. Peripheral vascular disease. 15. Physical deconditioning. PLAN: pneumonia-slowly improving AECOPD -IV steroids, still wheezing acute on chronic respiratory failure slowly improving,. hyperkalemia-potassium adjusted per Dr. Sheriff worsening renal function-monitor. I will start her on IV Rocephin, IV Zithromax and we are going to treat her for community-acquired pneumonia. Consult Dr. Styles for pulmonary evaluation and management. I will start her on breathing treatment. Monitor her for seizures and withdrawal because the patient has history of alcoholism. I discussed the condition and treatment with her . Monitor blood sugars, low-dose insulin sliding scale. Replace potassium. For details, please refer to the orders. I will also obtain urinalysis and culture if needed. IV solumedrol for jcough,wheezing. Plan Plan For more details regarding further plans, please refer to the orders. AMY WILSON APRN Mar 28, 2016 09:59
[2016-03-28 10:07] LABS: BASO # 0.1 x10^3/uL (0.0-0.2); BASO % 0 % (0-3); EOS % 0 % (0-3); HEMATOCRIT 38.9 % (36.0-47.0); HEMOGLOBIN 12.4 g/dL (12.0-15.5); LYMPH # 1.5 x10^3/uL (1.0-4.8); LYMPH % 9 % (24-48); MEAN CORPUSCULAR HEMOGLOBIN 28 pg (25-35); MEAN CORPUSCULAR HGB CONC 32 g/dL (31-37); MEAN CORPUSCULAR VOLUME 88 fL (79-100); MONO % 4 % (0-9); NEUT % 86 % (31-73); PLATELET COUNT 342 x10^3/uL (140-400); RED BLOOD COUNT 4.43 x10^6/uL (3.50-5.40); RED CELL DISTRIBUTION WIDTH 15.4 % (11.5-14.5); WHITE BLOOD COUNT 16.3 x10^3/uL (4.0-11.0)
[2016-03-28 10:19] VITALS: BP 126/59
[2016-03-28] MEDS ORDERED: IV NORMAL SALINE 1000ML BAG 1,000 ML IV SCH (10:30)
[2016-03-28 15:00] VITALS: BP 122/98
[2016-03-28 19:00] VITALS: BP 129/53
--- NOTE | 2016-03-28 20:09 | PDOC ---
PULMONARY PROGRESS NOTES Subjective CONTINUE COUGH Vitals Vital Signs Date Time Temp Pulse Resp B/P Pulse Ox O2 Delivery O2 Flow Rate FiO2 03/28/16 18:49 97 Nasal Cannula 2.0 03/28/16 15:00 96.8 78 20 122/98 96.8 Comments ros as mentioned as above other sys otherwise neg General: Alert HEENT: Other (nc at perrl, throat nose clear) Lungs: Wheezing, Crackles Cardiovascular: S1, S2 Abdomen: Soft, Non-tender Neuro Exam: Alert, Oriented Extremities: No Edema Skin: Warm Labs Laboratory Tests Test 03/26/16 20:28 03/27/16 05:35 03/27/16 06:58 03/27/16 11:08 Glucose (Fingerstick) 160mg/dL (70-99) 124mg/dL (70-99) 124mg/dL (70-99) White Blood Count 10.7x10^3/uL (4.0-11.0) Red Blood Count 4.32x10^6/uL (3.50-5.40) Hemoglobin 12.5g/dL (12.0-15.5) Hematocrit 38.6% (36.0-47.0) Mean Corpuscular Volume 89fL (79-100) Mean Corpuscular Hemoglobin 29pg (25-35) Mean Corpuscular Hemoglobin Concent 33g/dL (31-37) Red Cell Distribution Width 15.3% (11.5-14.5) Platelet Count 270x10^3/uL (140-400) Neutrophils (%) (Auto) 84% (31-73) Lymphocytes (%) (Auto) 12% (24-48) Monocytes (%) (Auto) 4% (0-9) Eosinophils (%) (Auto) 0% (0-3) Basophils (%) (Auto) 0% (0-3) Neutrophils # (Auto) 9.0x10^3uL (1.8-7.7) Lymphocytes # (Auto) 1.3x10^3/uL (1.0-4.8) Monocytes # (Auto) 0.4x10^3/uL (0.0-1.1) Eosinophils # (Auto) 0.0x10^3/uL (0.0-0.7) Basophils # (Auto) 0.0x10^3/uL (0.0-0.2) Sodium Level 141mmol/L (136-145) Potassium Level 4.6mmol/L (3.5-5.1) Chloride Level 105mmol/L (98-107) Carbon Dioxide Level 31mmol/L (21-32) Anion Gap 5 (6-14) Blood Urea Nitrogen 32mg/dL (7-20) Creatinine 1.0mg/dL (0.6-1.0) Estimated GFR (Cockcroft-Gault) 53.2 BUN/Creatinine Ratio 32 (6-20) Glucose Level 144mg/dL (70-99) Calcium Level 9.4mg/dL (8.5-10.1) Magnesium Level 2.9mg/dL (1.8-2.4) Total Bilirubin 0.3mg/dL (0.2-1.0) Aspartate Amino Transf (AST/SGOT) 12U/L (15-37) Alanine Aminotransferase (ALT/SGPT) 9U/L (14-59) Alkaline Phosphatase 73U/L (46-116) Total Protein 6.3g/dL (6.4-8.2) Albumin 2.4g/dL (3.4-5.0) Albumin/Globulin Ratio 0.6 (1.0-1.7) Test 03/27/16 16:28 03/27/16 20:29 03/28/16 04:10 03/28/16 08:01 Glucose (Fingerstick) 160mg/dL (70-99) 209mg/dL (70-99) 121mg/dL (70-99) White Blood Count 16.3x10^3/uL (4.0-11.0) Red Blood Count 4.43x10^6/uL (3.50-5.40) Hemoglobin 12.4g/dL (12.0-15.5) Hematocrit 38.9% (36.0-47.0) Mean Corpuscular Volume 88fL (79-100) Mean Corpuscular Hemoglobin 28pg (25-35) Mean Corpuscular Hemoglobin Concent 32g/dL (31-37) Red Cell Distribution Width 15.4% (11.5-14.5) Platelet Count 342x10^3/uL (140-400) Neutrophils (%) (Auto) 86% (31-73) Lymphocytes (%) (Auto) 9% (24-48) Monocytes (%) (Auto) 4% (0-9) Eosinophils (%) (Auto) 0% (0-3) Basophils (%) (Auto) 0% (0-3) Neutrophils # (Auto) 14.1x10^3uL (1.8-7.7) Lymphocytes # (Auto) 1.5x10^3/uL (1.0-4.8) Monocytes # (Auto) 0.7x10^3/uL (0.0-1.1) Eosinophils # (Auto) 0.0x10^3/uL (0.0-0.7) Basophils # (Auto) 0.1x10^3/uL (0.0-0.2) Sodium Level 139mmol/L (136-145) Potassium Level 5.2mmol/L (3.5-5.1) Chloride Level 103mmol/L (98-107) Carbon Dioxide Level 27mmol/L (21-32) Anion Gap 9 (6-14) Blood Urea Nitrogen 42mg/dL (7-20) Creatinine 1.1mg/dL (0.6-1.0) Estimated GFR (Cockcroft-Gault) 47.7 BUN/Creatinine Ratio 38 (6-20) Glucose Level 178mg/dL (70-99) Calcium Level 9.4mg/dL (8.5-10.1) Total Bilirubin 0.2mg/dL (0.2-1.0) Aspartate Amino Transf (AST/SGOT) 12U/L (15-37) Alanine Aminotransferase (ALT/SGPT) 13U/L (14-59) Alkaline Phosphatase 75U/L (46-116) Total Protein 6.3g/dL (6.4-8.2) Albumin 2.7g/dL (3.4-5.0) Albumin/Globulin Ratio 0.8 (1.0-1.7) Test 03/28/16 11:25 03/28/16 12:06 03/28/16 17:00 Glucose (Fingerstick) 114mg/dL (70-99) 122mg/dL (70-99) 168mg/dL (70-99) Laboratory Tests Test 03/27/16 20:29 03/28/16 04:10 03/28/16 08:01 03/28/16 11:25 Glucose (Fingerstick) 209mg/dL (70-99) 121mg/dL (70-99) 114mg/dL (70-99) White Blood Count 16.3x10^3/uL (4.0-11.0) Red Blood Count 4.43x10^6/uL (3.50-5.40) Hemoglobin 12.4g/dL (12.0-15.5) Hematocrit 38.9% (36.0-47.0) Mean Corpuscular Volume 88fL (79-100) Mean Corpuscular Hemoglobin 28pg (25-35) Mean Corpuscular Hemoglobin Concent 32g/dL (31-37) Red Cell Distribution Width 15.4% (11.5-14.5) Platelet Count 342x10^3/uL (140-400) Neutrophils (%) (Auto) 86% (31-73) Lymphocytes (%) (Auto) 9% (24-48) Monocytes (%) (Auto) 4% (0-9) Eosinophils (%) (Auto) 0% (0-3) Basophils (%) (Auto) 0% (0-3) Neutrophils # (Auto) 14.1x10^3uL (1.8-7.7) Lymphocytes # (Auto) 1.5x10^3/uL (1.0-4.8) Monocytes # (Auto) 0.7x10^3/uL (0.0-1.1) Eosinophils # (Auto) 0.0x10^3/uL (0.0-0.7) Basophils # (Auto) 0.1x10^3/uL (0.0-0.2) Sodium Level 139mmol/L (136-145) Potassium Level 5.2mmol/L (3.5-5.1) Chloride Level 103mmol/L (98-107) Carbon Dioxide Level 27mmol/L (21-32) Anion Gap 9 (6-14) Blood Urea Nitrogen 42mg/dL (7-20) Creatinine 1.1mg/dL (0.6-1.0) Estimated GFR (Cockcroft-Gault) 47.7 BUN/Creatinine Ratio 38 (6-20) Glucose Level 178mg/dL (70-99) Calcium Level 9.4mg/dL (8.5-10.1) Total Bilirubin 0.2mg/dL (0.2-1.0) Aspartate Amino Transf (AST/SGOT) 12U/L (15-37) Alanine Aminotransferase (ALT/SGPT) 13U/L (14-59) Alkaline Phosphatase 75U/L (46-116) Total Protein 6.3g/dL (6.4-8.2) Albumin 2.7g/dL (3.4-5.0) Albumin/Globulin Ratio 0.8 (1.0-1.7) Test 03/28/16 12:06 03/28/16 17:00 Glucose (Fingerstick) 122mg/dL (70-99) 168mg/dL (70-99) Medications Active Scripts Medications Dose Route/Sig Days Date Category Potassium Chloride 10 Meq Capsule.er 10 Meq PO DAILY 03/25/16 Reported Furosemide 40 Mg Tablet 1 Tab PO DAILY 03/25/16 Reported Cefpodoxime Proxetil 200 Mg Tablet 1 Tab PO BID 12/02/15 Rx Vitamin D (Cholecalciferol (Vitamin D3)) 1,000 Unit Tablet 1,000 Unit PO DAILY 09/28/15 Rx Fluoxetine Hcl 20 Mg Capsule 20 Mg PO DAILY 09/28/15 Rx Protonix (Pantoprazole Sodium) 40 Mg Tablet 40 Mg PO DAILYAC 12/09/14 Rx [Ipratropium/Albuterol Sulfate] 3 ML Nebu 3 Ml NEB RTQID 12/09/14 Rx Tylenol (Acetaminophen) 325 Mg Tablet 650 Mg PO PRN Q6HRS PRN 12/09/14 Rx Tramadol Hcl 50 Mg Tablet 1 Tab PO PRN Q6HRS 09/19/14 Reported Metoprolol Tartrate 50 Mg Tablet 1 Tab PO BID 09/19/14 Reported Mag-Oxide (Magnesium Oxide) 400 Mg Tablet 400 Mg PO [id number] 09/19/14 Reported Folic Acid 1 Mg Tablet 1 Tab PO DAILY 09/19/14 Reported Digoxin 125 Mcg Tablet 125 Mcg PO DAILY 09/19/14 Reported Comments cxr reviewed, rll infilt Impression . IMPRESSION: 1. Dyspnea secondary to acute exacerbation of chronic obstructive pulmonary disease and right lower lobe pneumonia. 2. Abnormal chest x-ray with right lower lobe infiltrate and crackles on examination. This is consistent with community-acquired pneumonia. 3. Clinically, unlikely congestive heart failure. 4. Leukocytosis secondary to pneumonia. 5. Underlying severe chronic obstructive pulmonary disease with chronic respiratory failure on 2-1/2 to 3 liters of oxygen. 6. COUGH Plan . CONTINUE THE SAME WILL ADD TESSALON PERLS SWITCH TO ORAL PRED IN AM SAMANTHA WELCH MD Mar 28, 2016 20:09
[2016-03-28] MEDS: MONTELUKAST SODIUM 10 MG TABLET. PO SCH (20:51)
[2016-03-28] MEDS: CEFTRIAXONE SODIUM 1 GM in IV NORMAL SALINE 100ML 100 ML IV SCH (20:51)
[2016-03-28] MEDS: BENZONATATE 100 MG CAPSULE. PO SCH (20:51)
[2016-03-28 23:00] VITALS: BP 161/82
[2016-03-29] MEDS: MAGNESIUM OXIDE 400 MG TABLET PO SCH ×2 (04:21→14:25)
[2016-03-29] MEDS: GUAIFENESIN DM 200MG/20MG 10 ML SYRUP. PO PRN (04:21)
[2016-03-29 05:50] LABS: BASO % 0 % (0-3); EOS % 0 % (0-3); HEMATOCRIT 39.4 % (36.0-47.0); HEMOGLOBIN 12.6 g/dL (12.0-15.5); LYMPH # 1.6 x10^3/uL (1.0-4.8); LYMPH % 12 % (24-48); MEAN CORPUSCULAR HEMOGLOBIN 28 pg (25-35); MEAN CORPUSCULAR HGB CONC 32 g/dL (31-37); MEAN CORPUSCULAR VOLUME 88 fL (79-100); MONO % 6 % (0-9); NEUT % 83 % (31-73); PLATELET COUNT 315 x10^3/uL (140-400); RED BLOOD COUNT 4.46 x10^6/uL (3.50-5.40); RED CELL DISTRIBUTION WIDTH 15.4 % (11.5-14.5); WHITE BLOOD COUNT 13.6 x10^3/uL (4.0-11.0)
[2016-03-29 06:13] LABS: ALBUMIN 2.6 g/dL (3.4-5.0); ALBUMIN/GLOBULIN RATIO 0.7 (1.0-1.7); CALCIUM 9.6 mg/dL (8.5-10.1); GFR 53.2; POTASSIUM 5.1 mmol/L (3.5-5.1); TOTAL BILIRUBIN 0.2 mg/dL (0.2-1.0); TOTAL PROTEIN 6.3 g/dL (6.4-8.2)
[2016-03-29 07:15] VITALS: BP 122/91
[2016-03-29] MEDS: INSULIN ASPART 300 UNITS/3 ML INSULN.PEN SQ SCH ×3 (07:30→16:30)
[2016-03-29] MEDS: IPRATRPIUM/ALBUTEROL 0.5/2.5MG 3 ML NEBU. NEB SCH ×2 (07:33→15:41)
[2016-03-29] MEDS: BUDESONIDE 0.5 MG/2 ML NEBU NEB SCH (07:33)
--- NOTE | 2016-03-29 07:41 | PDOC3 ---
[employer] 03/29/16 0741: IM DISCHARGE & PROGRESS NOTES Date of Admission Date of Admission Date of Admission: Mar 24, 2016 at 19:50 Date of Discharge Date of Discharge 03/29/16 Primary Diagnosis Primary Diagnosis 1. RLL CAP grm + gram negative 2. Exacerbation of chronic obstructive pulmonary disease. 3. Atrial fibrillation, chronic, not an anticoagulation candidate. 4. Chronic systolic congestive heart failure with ejection fraction of 40%. not acute 5. Hypertension. 6. Hyperlipidemia. 7. Acute on chronic respiratory failure, hypoxic with oxygen use at 2 liters by nasal cannula.with underlying COPD/emphysema/CHF POA 8. Gastroesophageal reflux disease. 9. Low back pain.chronic with h/o spinal stenosis 10. Chronic degenerative disk disease and lumbar spinal stenosis and mild scoliosis. 11. Gout. 12. Chronic renal insufficiency. 13. Diabetes mellitus. 14. Peripheral vascular disease. 15. severe weakness and debility Consults Consults Hong Styles MD Procedures Procedures None Labs Labs Laboratory Tests Test 03/26/16 07:52 03/26/16 08:30 03/26/16 11:38 03/26/16 16:31 Glucose (Fingerstick) 104mg/dL (70-99) 143mg/dL (70-99) 118mg/dL (70-99) Urine Collection Type Unknown Urine Color Yellow Urine Clarity Clear Urine pH 6.5 Urine Specific [place] 1.020 Urine Protein Negativemg/dL (NEG-TRACE) Urine Glucose (UA) Negativemg/dL (NEG) Urine Ketones (Stick) Negativemg/dL (NEG) Urine Blood Negative (NEG) Urine Nitrite Negative (NEG) Urine Bilirubin Negative (NEG) Urine Urobilinogen Dipstick 1.0mg/dL (0.2 mg/dL) Urine Leukocyte Esterase Negative (NEG) Urine RBC 0/HPF (0-2) Urine WBC 0/HPF (0-4) Urine Squamous Epithelial Cells Few/LPF Urine Bacteria 0/HPF (0-FEW) Test 03/26/16 16:45 03/26/16 20:28 03/27/16 05:35 03/27/16 06:58 White Blood Count 15.5x10^3/uL (4.0-11.0) 10.7x10^3/uL (4.0-11.0) Red Blood Count 4.46x10^6/uL (3.50-5.40) 4.32x10^6/uL (3.50-5.40) Hemoglobin 12.6g/dL (12.0-15.5) 12.5g/dL (12.0-15.5) Hematocrit 38.4% (36.0-47.0) 38.6% (36.0-47.0) Mean Corpuscular Volume 86fL (79-100) 89fL (79-100) Mean Corpuscular Hemoglobin 28pg (25-35) 29pg (25-35) Mean Corpuscular Hemoglobin Concent 33g/dL (31-37) 33g/dL (31-37) Red Cell Distribution Width 15.1% (11.5-14.5) 15.3% (11.5-14.5) Platelet Count 269x10^3/uL (140-400) 270x10^3/uL (140-400) Neutrophils (%) (Auto) 90% (31-73) 84% (31-73) Lymphocytes (%) (Auto) 6% (24-48) 12% (24-48) Monocytes (%) (Auto) 4% (0-9) 4% (0-9) Eosinophils (%) (Auto) 0% (0-3) 0% (0-3) Basophils (%) (Auto) 0% (0-3) 0% (0-3) Neutrophils # (Auto) 13.9x10^3uL (1.8-7.7) 9.0x10^3uL (1.8-7.7) Lymphocytes # (Auto) 1.0x10^3/uL (1.0-4.8) 1.3x10^3/uL (1.0-4.8) Monocytes # (Auto) 0.5x10^3/uL (0.0-1.1) 0.4x10^3/uL (0.0-1.1) Eosinophils # (Auto) 0.0x10^3/uL (0.0-0.7) 0.0x10^3/uL (0.0-0.7) Basophils # (Auto) 0.0x10^3/uL (0.0-0.2) 0.0x10^3/uL (0.0-0.2) Segmented Neutrophils % 87% (35-66) Band Neutrophils % 5% (0-9) Lymphocytes % 6% (24-48) Monocytes % 2% (0-10) Platelet Estimate Adequate (ADEQUATE) Anisocytosis Slight Glucose (Fingerstick) 160mg/dL (70-99) 124mg/dL (70-99) Sodium Level 141mmol/L (136-145) Potassium Level 4.6mmol/L (3.5-5.1) Chloride Level 105mmol/L (98-107) Carbon Dioxide Level 31mmol/L (21-32) Anion Gap 5 (6-14) Blood Urea Nitrogen 32mg/dL (7-20) Creatinine 1.0mg/dL (0.6-1.0) Estimated GFR (Cockcroft-Gault) 53.2 BUN/Creatinine Ratio 32 (6-20) Glucose Level 144mg/dL (70-99) Calcium Level 9.4mg/dL (8.5-10.1) Magnesium Level 2.9mg/dL (1.8-2.4) Total Bilirubin 0.3mg/dL (0.2-1.0) Aspartate Amino Transf (AST/SGOT) 12U/L (15-37) Alanine Aminotransferase (ALT/SGPT) 9U/L (14-59) Alkaline Phosphatase 73U/L (46-116) Total Protein 6.3g/dL (6.4-8.2) Albumin 2.4g/dL (3.4-5.0) Albumin/Globulin Ratio 0.6 (1.0-1.7) Test 03/27/16 11:08 03/27/16 16:28 03/27/16 20:29 03/28/16 04:10 Glucose (Fingerstick) 124mg/dL (70-99) 160mg/dL (70-99) 209mg/dL (70-99) White Blood Count 16.3x10^3/uL (4.0-11.0) Red Blood Count 4.43x10^6/uL (3.50-5.40) Hemoglobin 12.4g/dL (12.0-15.5) Hematocrit 38.9% (36.0-47.0) Mean Corpuscular Volume 88fL (79-100) Mean Corpuscular Hemoglobin 28pg (25-35) Mean Corpuscular Hemoglobin Concent 32g/dL (31-37) Red Cell Distribution Width 15.4% (11.5-14.5) Platelet Count 342x10^3/uL (140-400) Neutrophils (%) (Auto) 86% (31-73) Lymphocytes (%) (Auto) 9% (24-48) Monocytes (%) (Auto) 4% (0-9) Eosinophils (%) (Auto) 0% (0-3) Basophils (%) (Auto) 0% (0-3) Neutrophils # (Auto) 14.1x10^3uL (1.8-7.7) Lymphocytes # (Auto) 1.5x10^3/uL (1.0-4.8) Monocytes # (Auto) 0.7x10^3/uL (0.0-1.1) Eosinophils # (Auto) 0.0x10^3/uL (0.0-0.7) Basophils # (Auto) 0.1x10^3/uL (0.0-0.2) Sodium Level 139mmol/L (136-145) Potassium Level 5.2mmol/L (3.5-5.1) Chloride Level 103mmol/L (98-107) Carbon Dioxide Level 27mmol/L (21-32) Anion Gap 9 (6-14) Blood Urea Nitrogen 42mg/dL (7-20) Creatinine 1.1mg/dL (0.6-1.0) Estimated GFR (Cockcroft-Gault) 47.7 BUN/Creatinine Ratio 38 (6-20) Glucose Level 178mg/dL (70-99) Calcium Level 9.4mg/dL (8.5-10.1) Total Bilirubin 0.2mg/dL (0.2-1.0) Aspartate Amino Transf (AST/SGOT) 12U/L (15-37) Alanine Aminotransferase (ALT/SGPT) 13U/L (14-59) Alkaline Phosphatase 75U/L (46-116) Total Protein 6.3g/dL (6.4-8.2) Albumin 2.7g/dL (3.4-5.0) Albumin/Globulin Ratio 0.8 (1.0-1.7) Test 2/13/17 08:01 03/28/16 11:25 03/28/16 12:06 03/28/16 17:00 Glucose (Fingerstick) 121mg/dL (70-99) 114mg/dL (70-99) 122mg/dL (70-99) 168mg/dL (70-99) Test 03/28/16 21:37 03/29/16 04:05 03/29/16 04:40 Glucose (Fingerstick) 203mg/dL (70-99) White Blood Count 13.6x10^3/uL (4.0-11.0) Red Blood Count 4.46x10^6/uL (3.50-5.40) Hemoglobin 12.6g/dL (12.0-15.5) Hematocrit 39.4% (36.0-47.0) Mean Corpuscular Volume 88fL (79-100) Mean Corpuscular Hemoglobin 28pg (25-35) Mean Corpuscular Hemoglobin Concent 32g/dL (31-37) Red Cell Distribution Width 15.4% (11.5-14.5) Platelet Count 315x10^3/uL (140-400) Neutrophils (%) (Auto) 83% (31-73) Lymphocytes (%) (Auto) 12% (24-48) Monocytes (%) (Auto) 6% (0-9) Eosinophils (%) (Auto) 0% (0-3) Basophils (%) (Auto) 0% (0-3) Neutrophils # (Auto) 11.2x10^3uL (1.8-7.7) Lymphocytes # (Auto) 1.6x10^3/uL (1.0-4.8) Monocytes # (Auto) 0.8x10^3/uL (0.0-1.1) Eosinophils # (Auto) 0.0x10^3/uL (0.0-0.7) Basophils # (Auto) 0.0x10^3/uL (0.0-0.2) Sodium Level 142mmol/L (136-145) Potassium Level 5.1mmol/L (3.5-5.1) Chloride Level 105mmol/L (98-107) Carbon Dioxide Level 29mmol/L (21-32) Anion Gap 8 (6-14) Blood Urea Nitrogen 38mg/dL (7-20) Creatinine 1.0mg/dL (0.6-1.0) Estimated GFR (Cockcroft-Gault) 53.2 BUN/Creatinine Ratio 38 (6-20) Glucose Level 112mg/dL (70-99) Calcium Level 9.6mg/dL (8.5-10.1) Total Bilirubin 0.2mg/dL (0.2-1.0) Aspartate Amino Transf (AST/SGOT) 20U/L (15-37) Alanine Aminotransferase (ALT/SGPT) 13U/L (14-59) Alkaline Phosphatase 62U/L (46-116) Total Protein 6.3g/dL (6.4-8.2) Albumin 2.6g/dL (3.4-5.0) Albumin/Globulin Ratio 0.7 (1.0-1.7) Medications Medications Medications reviewed and reconciled for discharge. Brief hospital course Brief hospital course This 80 year old male who presented with acute on chronic hypoxic respiratory failure, CAP, and AECOPD was admitted. The following is a summary of her treatment. hypoxic a/c respiratory failure/CAP grm +grm - /AECOPD pulmonary consult nebulizer IV Rocephin, IV Zithromax IV steroids decreased 02/25 Admit WBC 20.8 03/29 13.6 cough 03/29- difficult to expectorate phlegm CKD II Admit BUN 22 03/29 38 Cr 1.0 1.0 K 3.6 5.1 Oral KCL stopped 03/28 NS 1L IV given 03/28 CHF not acute Admit BNP 2048 DM II FSBS/SSI BS [id number] severe weakness and debility PT OT hypoxic encephalopathy POA improving severe PCL malnutrition with underlying chronic PCL moderate supplement. DVT/GI prophylaxis SCD/TIMO PPI For more details regarding the past history, family history, social history, surgical history and other details, please refer to History and Physical. She remains weakened from the CAP and is agreeable to SNU for additional rehab. PLease see discharge orders and discharge meds. Subjective continues with cough and short of breath. Objective alert, weak, tight cough, non productive Vitals Vital Signs Date Time Temp Pulse Resp B/P Pulse Ox O2 Delivery O2 Flow Rate FiO2 03/28/16 23:00 97.5 68 22 161/82 93 Nasal Cannula 2.0 97.5 Physical Exam General appearance - alert,ill appearing, and in no distress and oriented to person, place, and time Mental Status - alert, oriented to person, place, and time, affect appropriate to mood Head - normal Chest - few bilateral wheezes resolved Heart - S1 and S2 normal Abdomen - soft, nontender, nondistended, BS+ Neurological - no acute focal neurological deficit noted. Musculoskeletal - no muscular tenderness noted Extremities - no pedal edema Skin - warm and dry Medications Medications reviewed. Allergy Allergies Coded Allergies Type Severity Reaction Last Updated Verified celecoxib Allergy Intermediate 09/19/14 Yes duloxetine Allergy Intermediate 09/19/14 Yes rofecoxib Allergy Intermediate 09/19/14 Yes Follow up Admit to Dr. Jackson or facility MD if Dr. Jackson does not participate in facility chosen. Disposition: Senior Living facility Comments Discharge Management - 35 minutes. For other details please refer to discharge instructions SUSAN JACKSON MD 03/29/16 0935: IM DISCHARGE & PROGRESS NOTES Brief hospital course Brief hospital course The patient was seen and examined by me. Chart reviewed and plan of care formulated. Discussed with, reviewed and agree with CYTOTECHNOLOGIST's notes, plan of care and orders with modifications as necessary. Discharge Management - 35 minutes. AMY WILSON APRN Mar 29, 2016 07:41 SUSAN JACKSON MD Mar 29, 2016 09:35
--- NOTE | 2016-03-29 07:44 | DISCH ---
DISCHARGE FINAL DIAGNOSIS Problems Medical Problems: (1) Community acquired pneumonia Status: Acute (2) COPD (chronic obstructive pulmonary disease) Status: Acute (3) Hypoxia Status: Acute CONDITION ON DISCHARGE: Stable SNF STAY <30 DAYS: Yes (PT OT eval and treat) POST DISCHARGE ORDERS ACTIVITY ORDERS: Activity as tolerated WEIGHT BEARING STATUS: As tolerated DIET AFTER DISCHARGE: Cardiac CHECKS AFTER DISCHARGE CHECKS AFTER DISCHARGE: Check blood sugar, ac/hs COMMENTS: VS per routine FOLLOW-UP PHYSICIAN FOLLOW-UP: Admit to Dr. Sheriff ADDITIONAL FOLLOW-UP: CBC with diff, CMP, Pre albumin in AM after admit TREATMENT/EQUIPMENT ORDERS ADAPTIVE EQUIPMENT NEEDED: Wheelchair RESPIRATORY EQUIPMENT NEEDED: Oxygen (2L NC continuous ), Nebulizer (QID ) AMY WILSON APRN Mar 29, 2016 07:44
[2016-03-29] MEDS ORDERED: INSU100I17 SQ (07:49)
[2016-03-29] MEDS ORDERED: GUAI-42 PO (07:49)
[2016-03-29] MEDS ORDERED: MONT10TA9 PO (07:49)
[2016-03-29] MEDS ORDERED: BENZ100C2 PO (07:49)
[2016-03-29] MEDS: CHOLECALCIFEROL (VITAMIN D3) 1,000 UNIT TABLET PO SCH (08:43)
[2016-03-29] MEDS: FLUOXETINE HCL 20 MG CAPSULE PO SCH (08:43)
[2016-03-29] MEDS: PANTOPRAZOLE 40 MG TABLET. PO SCH (08:43)
[2016-03-29] MEDS: FOLIC ACID 1 MG TABLET PO SCH (08:43)
[2016-03-29] MEDS: DIGOXIN 125 MCG TABLET PO SCH (08:43)
[2016-03-29] MEDS: METOPROLOL TART IMMED RELEASE 50 MG TABLET PO SCH (08:45)
[2016-03-29] MEDS: BENZONATATE 100 MG CAPSULE. PO SCH ×2 (08:45→14:25)
[2016-03-29] MEDS: methylPREDNISolone SOD SUCC PF 40 MG/ML VIAL. IV SCH (08:47)
--- NOTE | 2016-03-29 09:06 | PDOC ---
PULMONARY PROGRESS NOTES Subjective PT FEELS BETTER Vitals Vital Signs Date Time Temp Pulse Resp B/P Pulse Ox O2 Delivery O2 Flow Rate FiO2 03/29/16 08:45 106 135/58 03/29/16 07:34 99 Nasal Cannula 2.0 03/29/16 07:15 97.5 20 97.5 Comments ROS: No Nausea, No Chest Pain, No Abdominal Pain, No Increase Cough General: Alert HEENT: Other (nc at perrl, throat nose clear) Lungs: Clear Cardiovascular: S1, S2 Abdomen: Soft, Non-tender Neuro Exam: Alert, Oriented Extremities: No Edema Skin: Warm Labs Laboratory Tests Test 03/27/16 11:08 03/27/16 16:28 03/27/16 20:29 03/28/16 04:10 Glucose (Fingerstick) 124mg/dL (70-99) 160mg/dL (70-99) 209mg/dL (70-99) White Blood Count 16.3x10^3/uL (4.0-11.0) Red Blood Count 4.43x10^6/uL (3.50-5.40) Hemoglobin 12.4g/dL (12.0-15.5) Hematocrit 38.9% (36.0-47.0) Mean Corpuscular Volume 88fL (79-100) Mean Corpuscular Hemoglobin 28pg (25-35) Mean Corpuscular Hemoglobin Concent 32g/dL (31-37) Red Cell Distribution Width 15.4% (11.5-14.5) Platelet Count 342x10^3/uL (140-400) Neutrophils (%) (Auto) 86% (31-73) Lymphocytes (%) (Auto) 9% (24-48) Monocytes (%) (Auto) 4% (0-9) Eosinophils (%) (Auto) 0% (0-3) Basophils (%) (Auto) 0% (0-3) Neutrophils # (Auto) 14.1x10^3uL (1.8-7.7) Lymphocytes # (Auto) 1.5x10^3/uL (1.0-4.8) Monocytes # (Auto) 0.7x10^3/uL (0.0-1.1) Eosinophils # (Auto) 0.0x10^3/uL (0.0-0.7) Basophils # (Auto) 0.1x10^3/uL (0.0-0.2) Sodium Level 139mmol/L (136-145) Potassium Level 5.2mmol/L (3.5-5.1) Chloride Level 103mmol/L (98-107) Carbon Dioxide Level 27mmol/L (21-32) Anion Gap 9 (6-14) Blood Urea Nitrogen 42mg/dL (7-20) Creatinine 1.1mg/dL (0.6-1.0) Estimated GFR (Cockcroft-Gault) 47.7 BUN/Creatinine Ratio 38 (6-20) Glucose Level 178mg/dL (70-99) Calcium Level 9.4mg/dL (8.5-10.1) Total Bilirubin 0.2mg/dL (0.2-1.0) Aspartate Amino Transf (AST/SGOT) 12U/L (15-37) Alanine Aminotransferase (ALT/SGPT) 13U/L (14-59) Alkaline Phosphatase 75U/L (46-116) Total Protein 6.3g/dL (6.4-8.2) Albumin 2.7g/dL (3.4-5.0) Albumin/Globulin Ratio 0.8 (1.0-1.7) Test 03/28/16 08:01 03/28/16 11:25 03/28/16 12:06 03/28/16 17:00 Glucose (Fingerstick) 121mg/dL (70-99) 114mg/dL (70-99) 122mg/dL (70-99) 168mg/dL (70-99) Test 03/28/16 21:37 03/29/16 04:05 03/29/16 04:40 03/29/16 07:59 Glucose (Fingerstick) 203mg/dL (70-99) 82mg/dL (70-99) White Blood Count 13.6x10^3/uL (4.0-11.0) Red Blood Count 4.46x10^6/uL (3.50-5.40) Hemoglobin 12.6g/dL (12.0-15.5) Hematocrit 39.4% (36.0-47.0) Mean Corpuscular Volume 88fL (79-100) Mean Corpuscular Hemoglobin 28pg (25-35) Mean Corpuscular Hemoglobin Concent 32g/dL (31-37) Red Cell Distribution Width 15.4% (11.5-14.5) Platelet Count 315x10^3/uL (140-400) Neutrophils (%) (Auto) 83% (31-73) Lymphocytes (%) (Auto) 12% (24-48) Monocytes (%) (Auto) 6% (0-9) Eosinophils (%) (Auto) 0% (0-3) Basophils (%) (Auto) 0% (0-3) Neutrophils # (Auto) 11.2x10^3uL (1.8-7.7) Lymphocytes # (Auto) 1.6x10^3/uL (1.0-4.8) Monocytes # (Auto) 0.8x10^3/uL (0.0-1.1) Eosinophils # (Auto) 0.0x10^3/uL (0.0-0.7) Basophils # (Auto) 0.0x10^3/uL (0.0-0.2) Sodium Level 142mmol/L (136-145) Potassium Level 5.1mmol/L (3.5-5.1) Chloride Level 105mmol/L (98-107) Carbon Dioxide Level 29mmol/L (21-32) Anion Gap 8 (6-14) Blood Urea Nitrogen 38mg/dL (7-20) Creatinine 1.0mg/dL (0.6-1.0) Estimated GFR (Cockcroft-Gault) 53.2 BUN/Creatinine Ratio 38 (6-20) Glucose Level 112mg/dL (70-99) Calcium Level 9.6mg/dL (8.5-10.1) Total Bilirubin 0.2mg/dL (0.2-1.0) Aspartate Amino Transf (AST/SGOT) 20U/L (15-37) Alanine Aminotransferase (ALT/SGPT) 13U/L (14-59) Alkaline Phosphatase 62U/L (46-116) Total Protein 6.3g/dL (6.4-8.2) Albumin 2.6g/dL (3.4-5.0) Albumin/Globulin Ratio 0.7 (1.0-1.7) Laboratory Tests Test 03/28/16 11:25 03/28/16 12:06 03/28/16 17:00 03/28/16 21:37 Glucose (Fingerstick) 114mg/dL (70-99) 122mg/dL (70-99) 168mg/dL (70-99) 203mg/dL (70-99) Test 03/29/16 04:05 03/29/16 04:40 03/29/16 07:59 White Blood Count 13.6x10^3/uL (4.0-11.0) Red Blood Count 4.46x10^6/uL (3.50-5.40) Hemoglobin 12.6g/dL (12.0-15.5) Hematocrit 39.4% (36.0-47.0) Mean Corpuscular Volume 88fL (79-100) Mean Corpuscular Hemoglobin 28pg (25-35) Mean Corpuscular Hemoglobin Concent 32g/dL (31-37) Red Cell Distribution Width 15.4% (11.5-14.5) Platelet Count 315x10^3/uL (140-400) Neutrophils (%) (Auto) 83% (31-73) Lymphocytes (%) (Auto) 12% (24-48) Monocytes (%) (Auto) 6% (0-9) Eosinophils (%) (Auto) 0% (0-3) Basophils (%) (Auto) 0% (0-3) Neutrophils # (Auto) 11.2x10^3uL (1.8-7.7) Lymphocytes # (Auto) 1.6x10^3/uL (1.0-4.8) Monocytes # (Auto) 0.8x10^3/uL (0.0-1.1) Eosinophils # (Auto) 0.0x10^3/uL (0.0-0.7) Basophils # (Auto) 0.0x10^3/uL (0.0-0.2) Sodium Level 142mmol/L (136-145) Potassium Level 5.1mmol/L (3.5-5.1) Chloride Level 105mmol/L (98-107) Carbon Dioxide Level 29mmol/L (21-32) Anion Gap 8 (6-14) Blood Urea Nitrogen 38mg/dL (7-20) Creatinine 1.0mg/dL (0.6-1.0) Estimated GFR (Cockcroft-Gault) 53.2 BUN/Creatinine Ratio 38 (6-20) Glucose Level 112mg/dL (70-99) Calcium Level 9.6mg/dL (8.5-10.1) Total Bilirubin 0.2mg/dL (0.2-1.0) Aspartate Amino Transf (AST/SGOT) 20U/L (15-37) Alanine Aminotransferase (ALT/SGPT) 13U/L (14-59) Alkaline Phosphatase 62U/L (46-116) Total Protein 6.3g/dL (6.4-8.2) Albumin 2.6g/dL (3.4-5.0) Albumin/Globulin Ratio 0.7 (1.0-1.7) Glucose (Fingerstick) 82mg/dL (70-99) Medications Active Scripts Medications Dose Route/Sig Days Date Category Potassium Chloride 10 Meq Capsule.er 10 Meq PO DAILY 03/25/16 Reported Furosemide 40 Mg Tablet 1 Tab PO DAILY 03/25/16 Reported Cefpodoxime Proxetil 200 Mg Tablet 1 Tab PO BID 12/02/15 Rx Vitamin D (Cholecalciferol (Vitamin D3)) 1,000 Unit Tablet 1,000 Unit PO DAILY 09/28/15 Rx Fluoxetine Hcl 20 Mg Capsule 20 Mg PO DAILY 09/28/15 Rx Protonix (Pantoprazole Sodium) 40 Mg Tablet 40 Mg PO DAILYAC 12/09/14 Rx [Ipratropium/Albuterol Sulfate] 3 ML Nebu 3 Ml NEB RTQID 12/09/14 Rx Tylenol (Acetaminophen) 325 Mg Tablet 650 Mg PO PRN Q6HRS PRN 12/09/14 Rx Tramadol Hcl 50 Mg Tablet 1 Tab PO PRN Q6HRS 09/19/14 Reported Metoprolol Tartrate 50 Mg Tablet 1 Tab PO BID 09/19/14 Reported Mag-Oxide (Magnesium Oxide) 400 Mg Tablet 400 Mg PO [id number] 09/19/14 Reported Folic Acid 1 Mg Tablet 1 Tab PO DAILY 09/19/14 Reported Digoxin 125 Mcg Tablet 125 Mcg PO DAILY 09/19/14 Reported Comments CXR REVIEWED MOSLTY ATELECTASIS Impression . IMPRESSION: 1. Dyspnea secondary to acute exacerbation of chronic obstructive pulmonary disease and right lower lobe pneumonia. 2. Abnormal chest x-ray with right lower lobe infiltrate 3. Clinically, unlikely congestive heart failure. 4. Leukocytosis secondary to pneumonia. 5. Underlying severe chronic obstructive pulmonary disease with chronic respiratory failure on 2-1/2 to 3 liters of oxygen. 6. COUGH Plan . CXR REVIEWED IMPROVED WILL ADD IRENE EDMONDS SWITCH TO ORAL PRED OK TO D/C SOON SAMANTHA WELCH MD Mar 29, 2016 09:06
[2016-03-29] MEDS ORDERED: AMOXICILLIN/K CLAV 875/125MG TABLET. PO SCH (10:00)
[2016-03-29 11:22] VITALS: BP 167/92
[2016-03-29 11:23] VITALS: BP 143/87
[2016-03-29 15:13] VITALS: BP 152/99
[2016-03-30] MEDS ORDERED: PREDNISONE 20 MG TABLET PO SCH (09:00)
== END 2016-03-29 16:46 | DRG 177 ==
LOC: ER 18:23 → 5 NORTH 19:50
PROVIDERS: ADMIT Internal Medicine; ATTEND Internal Medicine
DX: J15.6 Pneumonia due to other Gram-negative bacteria (principal); E43 Unspecified severe protein-calorie malnutrition; J96.21 Acute and chronic respiratory failure with hypoxia; J44.0 Chronic obstructive pulmonary disease with (acute) lower respiratory infection; I50.22 Chronic systolic (congestive) heart failure; G93.1 Anoxic brain damage, not elsewhere classified; I13.0 Hypertensive heart and chronic kidney disease with heart failure and stage 1 through stage 4 chronic kidney disease, or unspecified chronic kidney disease; J44.1 Chronic obstructive pulmonary disease with (acute) exacerbation; E11.22 Type 2 diabetes mellitus with diabetic chronic kidney disease; Z68.27 Body mass index [BMI] 27.0-27.9, adult; E78.5 Hyperlipidemia, unspecified; I48.2 Chronic atrial fibrillation; I73.9 Peripheral vascular disease, unspecified; K21.9 Gastro-esophageal reflux disease without esophagitis; M10.9 Gout, unspecified; M41.9 Scoliosis, unspecified; M48.06 Spinal stenosis, lumbar region; N18.2 Chronic kidney disease, stage 2 (mild); Z82.49 Family history of ischemic heart disease and other diseases of the circulatory system; Z87.891 Personal history of nicotine dependence; Z91.81 History of falling; Z88.8 Allergy status to other drugs, medicaments and biological substances; Z87.440 Personal history of urinary (tract) infections
CPT/HCPCS: 36415; 71010; 71020; 80053; 81001; 82947; 83735; 83880; 84484; 85007; 85027; 87804; 93005; 94250; 94640; 94760; 96374; 99406; J0456; J0696; J1815; J2920; J2930; J3475; J7030; J7050; J7620; 97116; 97530; 99285-25

== ENCOUNTER 2018-05-18 13:53 | Emergency (ER) | payer MEDICARE ==
[~2018-05-18 13:53] MED LIST changes: +ALBU2.5V5 NEB; +ALBU2.5V8 INH; +AMOX1TAB11 PO; +ASPI-612 PO; +BENZ-8 PO; +BUDE0.5A NEB; +DOXY100T PO; +GUAI-108 PO; +INSU100I17 SQ; +IPRA3AMP29 NEB; -LEVO500T38 PO; +LEVO500T59 PO; +LISI-338 PO; -METO50TA2 PO; +METO50TA6 PO; +MONT10TA9 PO; +POTA10TA12 PO; +PRED-220 PO; +PRED20TA PO; +PSYL0.5215 PO; +SILV20CR14 TP; -SILV20CR4 TP
--- NOTE | 2018-05-18 14:31 | PHYS DOC ---
Past Medical History Past Medical History: A-Fib, CAD, COPD, Diabetes-Type II, Heart Disease, Hypertension, UTI, Other Additional Past Medical Histor: pt states has heart problems but no NC Past Surgical History: Other Additional Past Surgical Histo: back, Poor Historian Alcohol Use: None Drug Use: None Adult General Chief Complaint Chief Complaint: WEAKNESS/GENERALIZED HPI HPI Patient is a 82 year old female presents with chief complaint of altered mental status initially the paramedics call AND REPORT AT TRIAGE was for generalized weakness however on evaluation in the emergency room I saw the patient 25 minutes after she presented. She was not CALLED IN per the medics report as a stroke alert. IT did become apparent during the evaluation she had hemiparesis and right gaze deviation, UNKNOWN ACUITY OF THIS FINDING INISA, NURSE THOUGHT SHE MIGHT HAVE OLD CVA BUT WE ARE NOT SURE. I SAW HER 25 MIN INTO ER VISIT AND PROMPTLY CALLED A STROKE ALERT THEN At this point time the family is not here sounds like she is normally alert and oriented 3 and talkative possibly an old stroke on the left Review of Systems Review of Systems MUNOZ BY ACUITY Current Medications Current Medications Current Medications Medications (Trade) Dose Ordered Sig/Darline Start Time Stop Time Status Last Admin Dose Admin Alteplase, Recombinant 0 ml @ 0 mls/hr Q1H 05/18/18 15:00 05/18/18 15:01 DC 05/18/18 15:07 52.2 MLS/HR Labetalol HCl (Normodyne Iv Push) 10 mg PRN Q10MIN PRN 05/18/18 15:00 Nicardipine HCl 50 mg/Sodium Chloride 250 ml @ 25 mls/hr CONT PRN PRN 05/18/18 15:00 Sodium Chloride 50 ml @ 0 mls/hr 1X ONCE 05/18/18 15:00 05/18/18 15:01 DC Allergies Allergies Allergies Coded Allergies Type Severity Reaction Last Updated Verified celecoxib Allergy Intermediate 09/19/14 Yes duloxetine Allergy Intermediate 09/19/14 Yes rofecoxib Allergy Intermediate 09/19/14 Yes Physical Exam Physical Exam Constitutional: Well developed, MENTAL STATUS ABNORMAL. HENT: Normocephalic, atraumatic, bilateral external ears normal, oropharynx DRYt , no oral exudates, nose normal. [] Eyes: FORCED GAZE DEVIATION. Neck: Normal range of motion, no tenderness, supple, no stridor. [] Cardiovascular:Heart rate regular rhythm, Lungs & Thorax: SONOROUS RESPIRATIONS AT TIMES BUT OVERALL PROTECTING AIRWAY Abdomen: Bowel sounds normal, soft, no tenderness, no masses, no pulsatile masses. [] Skin: Warm, dry, no erythema, no rash. [] Extremities: No tenderness, no cyanosis, no clubbing, ROM intact, no edema. [] Neurologic: Patient does mumble some in response to questioning forced gaze deviation on the right left hemiparesis as noted C stroke scale for complete. Psychologic: Unable to assess. Current Patient Data Lab Values Laboratory Tests Test 05/18/18 14:10 05/18/18 14:23 05/18/18 14:43 Urine Collection Type U cath Urine Color Yellow Urine Clarity Clear Urine pH 6.5 Urine Specific [place] 1.020 Urine Protein Negative mg/dL (NEG-TRACE) Urine Glucose (UA) Negative mg/dL (NEG) Urine Ketones (Stick) Negative mg/dL (NEG) Urine Blood Negative (NEG) Urine Nitrite Positive (NEG) Urine Bilirubin Negative (NEG) Urine Urobilinogen Dipstick 1.0 mg/dL (0.2 mg/dL) Urine Leukocyte Esterase Moderate (NEG) Urine RBC 1-2 /HPF (0-2) Urine WBC 5-10 /HPF (0-4) Urine Squamous Epithelial Cells Few /LPF Urine Bacteria Many /HPF (0-FEW) Urine Hyaline Casts Few /HPF Glucose (Fingerstick) 85 mg/dL (70-99) White Blood Count 6.7 x10^3/uL (4.0-11.0) Red Blood Count 3.96 x10^6/uL (3.50-5.40) Hemoglobin 12.1 g/dL (12.0-15.5) Hematocrit 37.5 % (36.0-47.0) Mean Corpuscular Volume 95 fL (79-100) Mean Corpuscular Hemoglobin 31 pg (25-35) Mean Corpuscular Hemoglobin Concent 32 g/dL (31-37) Red Cell Distribution Width 17.0 % (11.5-14.5) H Platelet Count 185 x10^3/uL (140-400) Neutrophils (%) (Auto) 61 % (31-73) Lymphocytes (%) (Auto) 25 % (24-48) Monocytes (%) (Auto) 8 % (0-9) Eosinophils (%) (Auto) 5 % (0-3) H Basophils (%) (Auto) 1 % (0-3) Neutrophils # (Auto) 4.0 x10^3uL (1.8-7.7) Lymphocytes # (Auto) 1.7 x10^3/uL (1.0-4.8) Monocytes # (Auto) 0.6 x10^3/uL (0.0-1.1) Eosinophils # (Auto) 0.3 x10^3/uL (0.0-0.7) Basophils # (Auto) 0.1 x10^3/uL (0.0-0.2) Prothrombin Time 15.2 SEC (11.7-14.0) H Prothrombin Time INR 1.2 (0.8-1.1) H Sodium Level 142 mmol/L (136-145) Potassium Level 4.5 mmol/L (3.5-5.1) Chloride Level 103 mmol/L (98-107) Carbon Dioxide Level 29 mmol/L (21-32) Anion Gap 10 (6-14) Blood Urea Nitrogen 22 mg/dL (7-20) H Creatinine 0.9 mg/dL (0.6-1.0) Estimated GFR (Cockcroft-Gault) 59.8 BUN/Creatinine Ratio 24 (6-20) H Glucose Level 98 mg/dL (70-99) Lactic Acid Level 1.2 mmol/L (0.4-2.0) Calcium Level 9.7 mg/dL (8.5-10.1) Total Bilirubin 0.4 mg/dL (0.2-1.0) Aspartate Amino Transferase (AST) 20 U/L (15-37) Alanine Aminotransferase (ALT) 10 U/L (14-59) L Alkaline Phosphatase 62 U/L (46-116) Troponin I Quantitative < 0.017 ng/mL (0.000-0.055) ZG-Asx-E-Type Natriuretic Peptide 7608 pg/mL (0-449) H Total Protein 6.7 g/dL (6.4-8.2) Albumin 3.2 g/dL (3.4-5.0) L Albumin/Globulin Ratio 0.9 (1.0-1.7) L Laboratory Tests 05/18/18 14:43 Laboratory Tests 05/18/18 14:43 EKG EKG []EKG shows normal sinus rhythm rate of 87 there are some nonspecific changes laterally but no acute STEMI was seen interpreted by me the time of encounter Radiology/Procedures Radiology/Procedures [] Impressions: IMPRESSION: 1. No evidence of acute intracranial hemorrhage or mass effect. 2. Chronic findings discussed above. 3. Opacification of the right sphenoid sinus with hyperdensity is again identified. There is now development of a soft tissue opacity within left sphenoid sinus as well. FOR INTERNAL CODING PURPOSES Critical result: Findings discussed with Dr. Mantilla at 05/18/2018 2:46 PM. RESULT CODE: (C) IMPRESSION: 1. Stable cardiomegaly. 2. Cannot exclude left basilar airspace disease. Electronically signed by: Dg Olson MD (05/18/2018 2:48 PM) [id number] DICTATED and SIGNED BY: DG OLSON MD DATE: 05/18/18 1448 Course & Med Decision Making Course & Med Decision Making Pertinent Labs and Imaging studies reviewed. (See chart for details) This is an 82-year-old female with a history of diabetes as well as CHF CK D A. fib not on anticoagulation due to a history of falls she is a smoker she is presenting with a sudden change in mental status TPA was given patient was transferred to I was concerned about a large vessel occlusion given the elevated NIH stroke scale Multiple phone calls were made over the course of this patient's ER visit to the family both anD SON, I did not unfortunately did talk to them before we initiated TPA however then a son named Landon showed up just a few minutes after the TPA was hung and diD CONCURer with all of the history that she had a sudden change in mental status at 1 PM. Additionally marked the son also told me that at 1 PM he did witnessed a sudden change in mental status and that normally she is alert and oriented 3 with no neuro deficit at all. I WAS PATIENT 25 MINUTES INTO ER COURSE, initially the medic call was for generalized weakness and it took a period of time to figure out that this was a new deficit in fact I did tell the triage nurse who took report that she did have baseline left-sided weakness according to the report I received. However on chart review as well as me speaking with the patient's primary care service team doctor ANA station agent for Dr. Sheriff he did review the patient's primary care no significant did confirm that there is no baseline neurologic deficit. Additionally this ER COURSE care was complicated by the fact that the family did not return call FOR UP TO OR JUST AFTER ONE hour into the ER visit. Nevertheless ultimately we did give TPA at 1503 TPA WAS GIVEN. I did discuss this case with Dr. Milligan as well as proximally 1450 who agreed with the TPA decision and recommended transfer to . I did speak with Dr. DAVIS at as well as 1455 who did accept the patient in the emergency transfer for further acute stroke care. Critical care time was 60 minutes exclusive of procedures. Dragon Disclaimer Dragon Disclaimer This electronic medical record was generated, in whole or in part, using a voice recognition dictation system. Departure Departure Impression: Primary Impression: CVA (cerebral vascular accident) Disposition: 02 TRANSFER [facility] Condition: GUARDED Referrals: SUSAN SHERIFF MD (PCP) NIHSS Stroke Scale NIH Stroke Scale: NIH Stroke Scale Response (Comments) Value Level of Consciousness: 2 Requires stimulation 2 LOC Questions: 2 Answers neither correct 2 LOC Commands: 2 Perform neither task 2 Best Gaze: 2 Forced deviation 2 Visual: 0 No visual loss 0 Facial Palsy: 2 Partial paralysis 2 Motor - Left Arm 3 Limb falls 3 Motor - Right Arm 1 Drifts but can hold 1 Motor - Left Leg 3 Limb falls 3 Motor: Right Leg 1 Drift but can hold 1 Limb Ataxia: 0 Absent 0 Sensory: 2 Severe to total loss 2 Best Language: 2 Severe aphasia 2 Dysathria: 2 Severe 2 Extinction and Inattention: 0 Normal 0 Total 24 DOROTHEA MANTILLA MD May 18, 2018 14:31
--- NOTE | 2018-05-18 14:32 | EKG ---
[facility] [address] [place] [address] Test Date: 2018-05-18 Test Time: 14:11:04 Pat Name: CHRISSIE CABELLO Department: Room: Gender: F [employer] Consultant: [place] : [id number] Requested By: DOROTHEA GREEN Order Number: [id number] Reading MD: Oscar Soto MD Measurements Intervals [place] Rate: 86 P: -43 MN: 306 QRS: 74 QRSD: 86 T: 122 QT: 350 QTc: 421 Interpretive Statements PROBABLE ATRIAL FIBRILLATION LATERAL TWI NON-SPECIFIC ST/T CHANGES Electronically Signed On 05-22-2018 14:59:11 CDT by Oscar Soto MD
--- NOTE | 2018-05-18 14:51 | RAD ---
PORTABLE CHEST 1V Clinical Indication: ams Comparison: AP chest, July 01, 2017. Findings: Atherosclerotic and tortuous thoracic aorta. Moderate cardiomegaly is unchanged. Limited evaluation of the left lung base due to cardiac silhouette. Lungs are otherwise clear. Right nipple shadow incidentally noted. There is no pneumothorax. No pleural effusion is appreciated. Degenerative arthropathy of the bilateral shoulders. IMPRESSION: 1. Stable cardiomegaly. 2. Cannot exclude left basilar airspace disease. Electronically signed by: Dg Olson MD (05/18/2018 2:48 PM) [id number]
--- NOTE | 2018-05-18 14:52 | RAD ---
CT CODE STROKE HEAD WO Indication: ams LEANING TO L SIDE PREV SENT Exposure: One or more of the following individualized dose reduction techniques were utilized for this examination: 1. Automated exposure control 2. Adjustment of the mA and/or kV according to patient size 3. Use of iterative reconstruction technique. Technique: Standard imaging without intravenous contrast. Comparison with July 01, 2017. Hypoattenuation in the left parietal region and temporal region compatible with encephalomalacia or old infarction, redemonstrated. Similar mild hypoattenuation in the left cerebellum is again seen. Low-density in the white matter bilaterally, a nonspecific finding, but which is commonly due to chronic small vessel ischemic disease in a patient of this age. Generalized enlargement of ventricles and sulci compatible with atrophy. There is opacification of a mildly expanded right sphenoid sinus. Hyperdensity within the right sphenoid sinus is again identified. This is unchanged. There is now soft tissue opacification within left sphenoid sinus as well. No evidence of abnormal extra-axial fluid collection, midline shift, mass effect or acute intracranial hemorrhage. Intracranial arterial calcifications are identified. Orbits appear unremarkable. IMPRESSION: 1. No evidence of acute intracranial hemorrhage or mass effect. 2. Chronic findings discussed above. 3. Opacification of the right sphenoid sinus with hyperdensity is again identified. There is now development of a soft tissue opacity within left sphenoid sinus as well. FOR INTERNAL CODING PURPOSES Critical result: Findings discussed with Dr. Mantilla at 05/18/2018 2:46 PM. RESULT CODE: (C) Electronically signed by: Blaze Rust MD (05/18/2018 2:49 PM) [id number]
[2018-05-18 14:54] LABS: BASO # 0.1 x10^3/uL (0.0-0.2); BASO % 1 % (0-3); EOS # 0.3 x10^3/uL (0.0-0.7); EOS % 5 % (0-3); HEMATOCRIT 37.5 % (36.0-47.0); HEMOGLOBIN 12.1 g/dL (12.0-15.5); LYMPH # 1.7 x10^3/uL (1.0-4.8); LYMPH % 25 % (24-48); MEAN CORPUSCULAR HEMOGLOBIN 31 pg (25-35); MEAN CORPUSCULAR HGB CONC 32 g/dL (31-37); MEAN CORPUSCULAR VOLUME 95 fL (79-100); MONO # 0.6 x10^3/uL (0.0-1.1); MONO % 8 % (0-9); NEUT % 61 % (31-73); PLATELET COUNT 185 x10^3/uL (140-400); RED BLOOD COUNT 3.96 x10^6/uL (3.50-5.40); WHITE BLOOD COUNT 6.7 x10^3/uL (4.0-11.0)
[2018-05-18 14:56] LABS: BILIRUBIN,URINE NEGATIVE (NEG); CLARITY,URINE CLEAR; COLOR,URINE YELLOW; NITRITE,URINE POSITIVE (NEG); PH,URINE 6.5; PROTEIN,URINE NEGATIVE (NEG-TRACE)
[2018-05-18] MEDS ORDERED: IV NORMAL SALINE 50ML 50 ML IV ONE (15:00)
[2018-05-18] MEDS ORDERED: ALTEPLASE IV SCH (15:00)
[2018-05-18] MEDS ORDERED: LABETALOL 20 MG/4 ML DISP.SYRIN. IVP PRN (15:00)
[2018-05-18] MEDS ORDERED: ALTEPLASE 6 MG IV ONE (15:00)
[2018-05-18 15:04] LABS: HYALINE CASTS, URINE FEW /HPF; SQUAMOUS EPITHELIAL CELL,UR FEW /LPF
[2018-05-18 15:05] LABS: BACTERIA,URINE MANY /HPF (0-FEW)
[2018-05-18 15:06] LABS: CALCIUM 9.7 mg/dL (8.5-10.1); CREATININE 0.9 mg/dL (0.6-1.0); GFR 59.8; POTASSIUM 4.5 mmol/L (3.5-5.1)
[2018-05-18 15:12] LABS: ALBUMIN 3.2 g/dL (3.4-5.0); ALBUMIN/GLOBULIN RATIO 0.9 (1.0-1.7); PROTHROMBIN TIME PATIENT 15.2 SEC (11.7-14.0); TOTAL BILIRUBIN 0.4 mg/dL (0.2-1.0); TOTAL PROTEIN 6.7 g/dL (6.4-8.2)
[2018-05-18 15:22] VITALS: BP 135/70
== END 2018-05-18 15:29 | disposition short-term general hospital (02) ==
LOC: ER 13:53
DX: I63.9 Cerebral infarction, unspecified (principal); R53.1 Weakness; R41.82 Altered mental status, unspecified; J44.9 Chronic obstructive pulmonary disease, unspecified; I25.10 Atherosclerotic heart disease of native coronary artery without angina pectoris; I11.9 Hypertensive heart disease without heart failure; E11.9 Type 2 diabetes mellitus without complications; Z88.8 Allergy status to other drugs, medicaments and biological substances
CPT/HCPCS: 36415; 37195; 70450; 71045; 80053; 81001; 82962; 83605; 83880; 84484; 85025; 85610; 87086; 93005; 99291; J2997; 87186